=== PATIENT | male | born 1970 | race African-American/Black ===

== ENCOUNTER 2018-02-16 11:52 | Inpatient (IN) | payer OTHER ==
[2018-02-16 12:05] VITALS: BMI 27.4
--- NOTE | 2018-02-16 14:47 | HP ---
CIWA Score Nausea/Vomitin Muscle Tremors: 2 Anxiety: 2 Agitation: 2 Paroxysmal Sweats: 1-Minimal Palms Moist Orientation: 0-Oriented Tacttile Disturbances: 1-Very Mild Itch/Numbness Auditory Disturbances: 1-Very Mild Visual Disturbances: 0-None Headache: 2-Mild CIWA-Ar Total Score: 13 - Admission Criteria OASAS Guidelines: Admission for Medically Managed Detox: Requires at least one of the followin. CIWA greater than 12 2. Seizures within the past 24 hours 3. Delirium tremens within the past 24 hours 4. Hallucinations within the past 24 hours 5. Acute intervention needed for co occurring medical disorder 6. Acute intervention needed for co occurring psychiatric disorder 7. Severe withdrawal that cannot be handled at a lower level of care (continued vomiting, continued diarrhea, abnormal vital signs) requiring intravenous medication and/or fluids 8. Patient presents the following: CIWA greater than 12 Admission Criteria Met: Admission criteria met Admission ROS S - [facility] Chief Complaint: i need helpto stop drinking alcohol,xanax,cocaine,marijuana,heroin abused,mmtp 110 mgs/day,last medicated today Allergies/Adverse Reactions: Allergies Allergy/AdvReac Type Severity Reaction Status Date / Time No Known Allergies Allergy Verified 02/12/13 12:52 History of Present Illness: this 47 years old male with alcohol,cocaine,marijuana,xaxax ,heroin abused,mmtp 110 mgs/day,last medicated to day,last treatment 01/22 did not recall the facility gout right foot on prednisone by [facility] 40 mgs/day has 2 more days of medications nicotine dependence weight loss multiple admissions in the past longest period of sobriety 3 and a half year seizure last 3 days ago last seen in [facility],ecchymosis right ,abrasion of right face history of schizophrenia Exam Limitations: No Limitations - Ebola screening Have you traveled outside of the country in the last 21 days: No Have you had contact with anyone from an Ebola affected area: No Have you been sick,other than usual withdrawal symptoms: No - Review of Systems Constitutional: Loss of Appetite, Malaise, Night Sweats, Changes in sleep, Weakness, Unintentional Wgt. Loss EENT: reports: Nose Congestion (abrasion of right face and ecchymosis right infraorbital area) Respiratory: reports: No Symptoms reported Cardiac: reports: No Symptoms Reported GI: reports: Nausea, Poor Appetite : reports: No Symptoms Reported Musculoskeletal: reports: Back Pain, Muscle Pain, Other (gout right foot) Integumentary: reports: Dryness Neuro: reports: Headache, Tremors Endocrine: reports: No Symptoms Reported Hematology: reports: No Symptoms Reported Psychiatric: reports: No Sypmtoms Reported, Judgement Intact, Mood/Affect Appropiate, Orientated x3, other (schizophrenia) Patient History - Patient Medical History Hx Anemia: No Hx Asthma: No Hx Chronic Obstructive Pulmonary Disease (COPD): No Hx Cancer: No Hx Cardiac Disorders: No Hx Congestive Heart Failure: No Hx Hypertension: No Hx Hypercholesterolemia: No Hx Pacemaker: No HX Cerebrovascular Accident: No Hx Seizures: No Hx Dementia: No Hx Diabetes: No Hx Gastrointestinal Disorders: No Hx Liver Disease: No Hx Genitourinary Disorders: No Hx Sexually Transmitted Disorders: No Hx Renal Disease (ESRD): No Hx Thyroid Disease: No Hx Human Immunodeficiency Virus (HIV): No Hx Hepatitis C: No Hx Depression: Yes Hx Suicide Attempt: Yes (cut left forearm in 1992) Hx Bipolar Disorder: No Hx Schizophrenia: Yes Other Medical History: no suicidal,no homicidal - Patient Surgical History Past Surgical History: No Hx Neurologic Surgery: No Hx Cataract Extraction: No Hx Cardiac Surgery: No Hx Lung Surgery: No Hx Breast Surgery: No Hx Breast Biopsy: No Hx Abdominal Surgery: No Hx Appendectomy: No Hx Cholecystectomy: No Hx Genitourinary Surgery: No Hx Section: No Hx Orthopedic Surgery: No Anesthesia Reaction: No - PPD History Previous Implant?: Yes Documented Results: Negative w/o proof Implanted On Prior [facility] Admission?: Yes Date: 02/09/13 PPD to be Administered?: Yes - Smoking Cessation Smoking history: Current every day smoker Have you smoked in the past 12 months: Yes Aproximately how many cigarettes per day: 20 Cigars Per Day: 0 Hx Chewing Tobacco Use: No Initiated information on smoking cessation: Yes 'Breaking Loose' booklet given: 02/16/18 - Substance & Tx. History Hx Alcohol Use: Yes Hx Substance Use: Yes Substance Use Type: Alcohol, Cocaine, Heroin, Marijuana, Tranquilizers Hx Substance Use Treatment: Yes (01/22 did not recal facility) - Substances Abused Alcohol Route: Oral Frequency: Daily Amount used: 1pint of vodka/6 packs of 12 ozs of beer Age of first use: 14 Date of Last Use: 02/15/18 Alprazolam (Xanax) Route: Oral Frequency: Daily Amount used: 4 mgs Age of first use: 24 Date of Last Use: 02/14/18 Cocaine Route: Smoking Frequency: Daily Amount used: 100$ Age of first use: 17 Date of Last Use: 02/16/18 Marijuana/Hashish Route: Smoking Frequency: Daily Amount used: 20$ Age of first use: 12 Date of Last Use: 02/15/18 Heroin Route: Inhalation Frequency: Daily Amount used: 4 to 8 bags Age of first use: 12 Date of Last Use: 02/15/18 Family Disease History - Family Disease History Family History: Denies Admission Physical Exam [facility] - Vital Signs Vital Signs: Vital Signs - 24 hr 02/16/18 12:02 Temperature 96.2 F L Pulse Rate 76 Respiratory 18 Rate Blood Pressure 137/80 - Physical General Appearance: Yes: Moderate Distress, Tremorous, Irritable, Sweating, Anxious HEENTM: Yes: Normal ENT Inspection, DL, Pharynx Normal, Other (ecchymosis of right infraorbital area with abrasion no diplopia,no numbess of face and infraorbital area, post seizure 3 days ago seen at [facility]) Respiratory: Yes: Lungs Clear, Normal Breath Sounds, No Respiratory Distress Neck: Yes: Within Normal Limits, Supple, Trachea in good position Breast: Yes: Within Normal Limits Cardiology: Yes: Within Normal Limits, Regular Rhythm, Regular Rate, S1, S2 Abdominal: Yes: Within Normal Limits, Normal Bowel Sounds, Non Tender, Soft Genitourinary: Yes: Within Normal Limits Back: Yes: Muscle Spasm Musculoskeletal: Yes: Back pain, Muscle Pain Extremities: Yes: Normal Range of Motion, Tremors, Other (gout of right foot) Neurological: Yes: panel edge sealer II-XII NML intact, Fully Oriented, Alert, Motor Strength 5/5 Integumentary: Yes: Dry Lymphatic: Yes: Within Normal Limits - Diagnostic (1) Alcohol dependence with uncomplicated withdrawal Current Visit: Yes Status: Acute (2) Uncomplicated sedative, hypnotic or anxiolytic withdrawal Current Visit: Yes Status: Acute (3) Cannabis dependence Current Visit: Yes Status: Chronic (4) Cocaine dependence Current Visit: No Status: Chronic (5) Heroin abuse Current Visit: Yes Status: Acute (6) Methadone maintenance therapy patient Current Visit: Yes Status: Acute (7) Gout of right foot Current Visit: Yes Status: Chronic Qualifiers: Gout etiology: idiopathic Chronicity: unspecified Qualified Code(s): M10.071 - Idiopathic gout, right ankle and foot (8) Schizophrenia Current Visit: Yes Status: Chronic Qualifiers: Schizophrenia type: paranoid schizophrenia Qualified Code(s): F20.0 - Paranoid schizophrenia (9) History of attempted suicide Current Visit: Yes Status: Acute Cleared for Admission [facility] - Detox or Rehab [facility] Level of Care: Medically Managed Detox Regimen/Protocol: Valium [facility] Breath Alcohol Content Breath Alcohol Content: 0 Urine Drug Screen - Results Drug Screen Negative: No Urine Drug Screen Results: MYRIAM-Cocaine, OPI-Opiates, BZO-Benzodiazepines, MTD- Methadone, FEN-Fentanyl
[2018-02-16] MEDS ORDERED: MAG HYDROX/AL HYDROX/SIMETH 30 ML UNIT-DOSE CUP PO PRN (15:03)
[2018-02-16] MEDS ORDERED: LOPERAMIDE HCL 2 MG CAPSULE PO PRN (15:03)
[2018-02-16] MEDS ORDERED: P-EPHED 60MG/TRIPROLIDI 2.5MG TABLET PO PRN (15:03)
[2018-02-16] MEDS ORDERED: guaiFENesin/D-METHORPHAN HB 10 ML UNIT-DOSE CUPS PO PRN (15:03)
[2018-02-16] MEDS ORDERED: MENTHOL/PHENOL 1 EACH UD MM PRN (15:03)
[2018-02-16] MEDS ORDERED: diazePAM 5 MG TABLET PO PRN (15:03)
[2018-02-16] MEDS ORDERED: MAGNESIUM CITRATE 300 ML BOTTLE PO PRN (15:03)
[2018-02-16] MEDS ORDERED: MAGNESIUM HYDROX 2400MG/30ML ORAL SUSPENSION 30 ML CUP PO PRN (15:03)
[2018-02-16] MEDS ORDERED: diazePAM 5 MG TABLET PO ONE (15:45)
[2018-02-16] MEDS: NICOTINE 21 MG/24 HOURS TOPICAL PATCH TD SCH (17:45)
[2018-02-16] MEDS ORDERED: MELATONIN 5 MG TABLETS PO PRN (22:00)
[2018-02-16] MEDS: diazePAM 5 MG TABLET PO SCH (22:29)
[2018-02-16] MEDS: THIAMINE HCL 100 MG TABLET (FP) PO SCH (22:29)
[2018-02-17] MEDS: diazePAM 5 MG TABLET PO SCH ×3 (07:20→21:59)
[2018-02-17] MEDS ORDERED: METHADONE HCL 10 MG TABLET PO SCH (09:15)
[2018-02-17] MEDS ORDERED: METHADONE 80 MG, METHADONE (DETOX) 30 MG PO SCH (09:20)
[2018-02-17] MEDS ORDERED: METHADONE HCL 10 MG TABLET ONE (10:27)
[2018-02-17] MEDS ORDERED: METHADONE HCL 40 MG DISPERSABLE TABLET ONE (10:27)
[2018-02-17] MEDS: METHADONE 80 MG, METHADONE 30 MG PO SCH (10:28)
[2018-02-17] MEDS: NICOTINE 21 MG/24 HOURS TOPICAL PATCH TD SCH (10:29)
[2018-02-17] MEDS: predniSONE 20 MG TABLET (UD) PO SCH (10:29)
[2018-02-17 10:30] LABS: HEMATOCRIT 36.6 % (35.4-49); HEMOGLOBIN 11.6 GM/dL (11.7-16.9); MCH 29.9 pg (25.7-33.7); MCHC 31.7 g/dl (32.0-35.9); MEAN CELL VOLUME 94.2 fl (80-96); MEAN PLT VOLUME 8.9 fl (7.5-11.1); PLATELET COUNT 249 K/MM3 (134-434); RBC 3.89 M/mm3 (4.00-5.60); RDW 14.7 % (11.9-15.9); WHITE BLOOD COUNT 8.8 K/mm3 (4.0-10.0)
[2018-02-17] MEDS: PRENATAL VITAMINS W/ FOLIC ACID TABLET (FP) PO SCH (10:30)
[2018-02-17 11:25] LABS: ALBUMIN 3.8 g/dl (3.4-5.0); ALK PHOS 114 U/L (45-117); ANION GAP 8 MMOL/L (8-16); BILIRUBIN,TOTAL 0.2 mg/dL (0.2-1); BLOOD UREA NITROGEN 18 mg/dL (7-18); CHLORIDE 110 mmol/L (98-107); CO2 25 mmol/L (21-32); GLUCOSE,RANDOM 104 mg/dL (74-106); POTASSIUM 4.5 mmol/L (3.5-5.1); SGOT/AST 18 U/L (15-37); SGPT/ALT 25 U/L (13-61); SODIUM 142 mmol/L (136-145)
[2018-02-17] MEDS: ALLOPURINOL 100 MG TABLET (FP) PO SCH (11:34)
[2018-02-17] MEDS ORDERED: PNEUMOC 13-VAL CONJ-DIP CRM/PF 0.5 ML DISP.SYRIN IM ONE (12:00)
[2018-02-17] MEDS ORDERED: FLU VACCINE QUAD 60 MCG/0.5 ML (MDV 18-19) IM ONE (12:00)
[2018-02-17] MEDS ORDERED: PNEUMOCOCCAL 23 VACCINE 0.5 ML VIAL IM ONE (12:00)
--- NOTE | 2018-02-17 13:42 | PN ---
[facility] CIWA - CIWA Score Nausea/Vomitin-No Nausea/No Vomiting Muscle Tremors: 2 Anxiety: 3 Agitation: 3 Paroxysmal Sweats: No Perspiration Orientation: 0-Oriented Tacttile Disturbances: 3-Moderate Itch/Numb/Burn Auditory Disturbances: 0-None Visual Disturbances: 0-None Headache: 0-None Present CIWA-Ar Total Score: 11 S Progress Note (SOAP) Subjective: PATIENT C/O SHAKES, NUMBNESS/ITCHING TO FEET, RESTLESSNESS AND RIGHT ANKLE SWELLING/PAIN. PATIENT REPORTS H/O GOUT. Objective: 02/17/18 13:37 Vital Signs Temperature 97.6 F 02/17/18 10:59 Pulse Rate 60 02/17/18 10:59 Respiratory Rate 18 02/17/18 10:59 Blood Pressure 100/54 L 02/17/18 10:59 O2 Sat by Pulse Oximetry (%) Laboratory Tests 02/17/18 02/17/18 02/17/18 05:45 05:45 05:45 WBC 8.8 RBC 3.89 L Hgb 11.6 L Hct 36.6 MCV 94.2 MCH 29.9 D MCHC 31.7 L RDW 14.7 D Plt Count 249 D MPV 8.9 Sodium 142 Potassium 4.5 Chloride 110 H Carbon Dioxide 25 Anion Gap 8 BUN 18 Creatinine 1.0 Creat Clearance w eGFR > 60 Random Glucose 104 Calcium 9.0 Total Bilirubin 0.2 AST 18 ALT 25 Alkaline Phosphatase 114 Total Protein 7.0 Albumin 3.8 RPR Titer Nonreactive PE: SKIN WARM AND DRY ALERT AND ORIENTED X 3 EXT FULL ROM, AMB AD SHANNAN WITH LIMP, RIGHT OUTER ANKLE SWELLING NEURO: CRANIAL NERVES 1-X11 GROSSLY INTACT, +PERRLA +RESTLESSNESS, PACING ON UNIT Assessment: 02/17/18 13:42 WITHDRAWAL SX H/O GOUT Plan: CONTINUE DETOX ENCOURAGE ORAL FLUIDS CHECK URIC ACID ALLOPURINOL 100MG DAILY CANE ORDERED FOR AMBULATION SUPPORT
--- NOTE | 2018-02-17 16:56 | CONSULT ---
[facility] Psychiatric Consult - Data Date of interview: 02/17/18 Admission source: [facility] Identifying data: Readmission to [facility] for this 47 y/o AA male seeking detoxification treatment on for heroin, cocaine, cannabis and alcohol dependence. Patient is single, no children, homeless, unemployed and supported on Public Assistance. Substance Abuse History: Confirmed by the patient in this interview. Details in current [facility] report : Smoking history: Current every day smoker. Have you smoked in the past 12 months: Yes. Aproximately how many cigarettes per day: 20. Cigars Per Day: 0. Hx Chewing Tobacco Use: No. Initiated information on smoking cessation: Yes. 'Breaking Loose' booklet given: 02/16/18. - Substance & Tx. History. Hx Alcohol Use: Yes. Hx Substance Use: Yes. Substance Use Type : Alcohol, Cocaine, Heroin, Marijuana, Tranquilizers. Hx Substance Use Treatment: Yes (01/22 did not recal facility). - Substances Abused. Alcohol. Route: Oral. Frequency: Daily. Amount used: 1pint of vodka/6 packs of 12 ozs of beer. Age of first use: 14. Date of Last Use: 02/15/18. Alprazolam (Xanax). Route: Oral. Frequency: Daily. Amount used: 4 mgs. Age of first use: 24. Date of Last Use: 02/14/18. Cocaine. Route: Smoking. Frequency: Daily. Amount used: 100$. Age of first use: 17. Date of Last Use: 02/16/18. Marijuana/Hashish. Route: Smoking. Frequency: Daily. Amount used: 20$. Age of first use: 12. Date of Last Use: 02/15/18. Heroin. Route: Inhalation. Frequency: Daily. Amount used: 4 to 8 bags. Age of first use: 12. Date of Last Use: 02/15/18 Medical History: Seizure disorder (on keppra) and gout. Psychiatric History: Early onset of psychiatric illness (age 8). History of multiple psychiatric hospitalizations. Patient is known to [facility], [facility] and [facility]. Diagnosed with Schizoaffective Disorder. Mr Saldana sees a private psychiatrist in [facility]. Medicated with abilify. Patient used to be under the care of Dr Jagdish Lu at [facility] (used to be on a regimen of depakote 500 mg/ bid + trazodone 50 mg/hs + lexapro 20 mg/daily + neurontin 300 mg bid + cogentin 1 mg/hs. History of multiple suicide attempts via self-mutilation ( scars visible on left forearm). On methadone maintenance (110 mg/day). Physical/Sexual Abuse/Trauma History: Patient denies. Additional Comment: Urine Drug Screen Results: MYRIAM-Cocaine, OPI-Opiates, BZO- Benzodiazepines, MTD-Methadone, FEN-Fentanyl. Noted. Mental Status Exam - Mental Status Exam Alert and Oriented to: Time, Place, Person Cognitive Function: Good Patient Appearance: Well Groomed Mood: Nervous, Withdrawn, Apprehensive Affect: Mood Congruent, Constricted Patient Behavior: Fatigued, Cooperative Speech Pattern: Clear, Appropriate Voice Loudness: Normal Thought Process: Goal Oriented Thought Disorder: Not Present Hallucinations: Denies Suicidal Ideation: Denies Homicidal Ideation: Denies Insight/Judgement: Poor Sleep: Poorly, Difficulty falling asleep Appetite: Good Muscle strength/Tone: Normal Gait/Station: Other (walks with a cane) Psychiatric Findings - Problem List ([place] 1, 2,3) (1) Alcohol dependence with uncomplicated withdrawal Current Visit: Yes Status: Acute (2) Uncomplicated sedative, hypnotic or anxiolytic withdrawal Current Visit: Yes Status: Acute (3) Opioid dependence on agonist therapy Current Visit: Yes Status: Chronic (4) Cannabis dependence Current Visit: Yes Status: Chronic (5) Cocaine dependence Current Visit: No Status: Chronic (6) Nicotine dependence Current Visit: Yes Status: Chronic (7) Schizoaffective disorder Current Visit: Yes Status: Chronic (8) Insomnia Current Visit: Yes Status: Chronic - Initial Treatment Plan Initial Treatment Plan: Psychoeducation. Sleep hygiene. Detoxification in progress. Medications will be resumed as follows : depakote 500 mg po bid + abilify 5 mg po daily + trazodone 50 mg po hs. Pharmacy claimms are reviewed : noted scripts for these drugs dated 01/13/18 + 01/30/18 + 02/05/18. Attempt made to contact [facility] pharmacist at [phone]. Busy line. Will contact case hardener Sharlene Yanes from [employer] at [phone] to collect collateral information. Side effects/benefits of each drug are discussed with the patient. Mr Saldana consents (verbally) to this plan of care. Observation. Valproic acid level is pending.
[2018-02-17] MEDS: ACETAMINOPHEN 325 MG TABLET (FP) PO PRN (18:59)
[2018-02-17] MEDS: traZODone HCL 50 MG TABLET (FP) PO SCH (21:59)
[2018-02-17] MEDS: DIVALPROEX SODIUM 500 MG TABLET E.C. PO SCH (21:59)
[2018-02-17] MEDS: THIAMINE HCL 100 MG TABLET (FP) PO SCH (21:59)
[2018-02-18] MEDS ORDERED: METHADONE HCL 10 MG TABLET ONE (04:44)
[2018-02-18] MEDS ORDERED: METHADONE HCL 40 MG DISPERSABLE TABLET ONE (04:45)
[2018-02-18] MEDS: METHADONE 80 MG, METHADONE 30 MG PO SCH (05:26)
[2018-02-18] MEDS: ARIPiprazole 5 MG TABLET (FP) PO SCH (09:48)
[2018-02-18] MEDS: DIVALPROEX SODIUM 500 MG TABLET E.C. PO SCH ×2 (09:48→22:35)
[2018-02-18] MEDS: ALLOPURINOL 100 MG TABLET (FP) PO SCH (09:48)
[2018-02-18] MEDS: BENZTROPINE MESYLATE 1 MG TABLET (FP) PO SCH (09:48)
[2018-02-18] MEDS: predniSONE 20 MG TABLET (UD) PO SCH (09:48)
[2018-02-18] MEDS: diazePAM 5 MG TABLET PO SCH ×2 (09:49→22:35)
[2018-02-18] MEDS: NICOTINE 21 MG/24 HOURS TOPICAL PATCH TD SCH (10:19)
[2018-02-18] MEDS: PRENATAL VITAMINS W/ FOLIC ACID TABLET (FP) PO SCH (10:19)
--- NOTE | 2018-02-18 11:32 | PN ---
S CIWA - CIWA Score Nausea/Vomitin Muscle Tremors: 2 Anxiety: 2 Agitation: 2 Paroxysmal Sweats: 2 Orientation: 0-Oriented Tacttile Disturbances: 1-Very Mild Itch/Numbness Auditory Disturbances: 0-None Visual Disturbances: 0-None Headache: 0-None Present CIWA-Ar Total Score: 11 S Progress Note (SOAP) Subjective: Sweats, interrupted sleep, right foot pain Objective: 02/18/18 11:30 Vital Signs Temperature 98.7 F 02/18/18 09:57 Pulse Rate 76 02/18/18 09:57 Respiratory Rate 18 02/18/18 09:57 Blood Pressure 127/77 02/18/18 09:57 O2 Sat by Pulse Oximetry (%) Laboratory Last Values WBC 8.8 K/mm3 (4.0-10.0) 02/17/18 05:45 RBC 3.89 M/mm3 (4.00-5.60) L 02/17/18 05:45 Hgb 11.6 GM/dL (11.7-16.9) L 02/17/18 05:45 Hct 36.6 % (35.4-49) 02/17/18 05:45 MCV 94.2 fl (80-96) 02/17/18 05:45 MCH 29.9 pg (25.7-33.7) D 02/17/18 05:45 MCHC 31.7 g/dl (32.0-35.9) L 02/17/18 05:45 RDW 14.7 % (11.9-15.9) D 02/17/18 05:45 Plt Count 249 K/MM3 (134-434) D 02/17/18 05:45 MPV 8.9 fl (7.5-11.1) 02/17/18 05:45 Sodium 142 mmol/L (136-145) 02/17/18 05:45 Potassium 4.5 mmol/L (3.5-5.1) 02/17/18 05:45 Chloride 110 mmol/L (98-107) H 02/17/18 05:45 Carbon Dioxide 25 mmol/L (21-32) 02/17/18 05:45 Anion Gap 8 MMOL/L (8-16) 02/17/18 05:45 BUN 18 mg/dL (7-18) 02/17/18 05:45 Creatinine 1.0 mg/dL (0.55-1.3) 02/17/18 05:45 Creat Clearance w eGFR > 60 (>60) 02/17/18 05:45 Random Glucose 104 mg/dL (74-106) 02/17/18 05:45 Uric Acid 4.2 mg/dL (2.6-7.2) 02/18/18 07:40 Calcium 9.0 mg/dL (8.5-10.1) 02/17/18 05:45 Total Bilirubin 0.2 mg/dL (0.2-1) 02/17/18 05:45 AST 18 U/L (15-37) 02/17/18 05:45 ALT 25 U/L (13-61) 02/17/18 05:45 Alkaline Phosphatase 114 U/L (45-117) 02/17/18 05:45 Total Protein 7.0 g/dl (6.4-8.2) 02/17/18 05:45 Albumin 3.8 g/dl (3.4-5.0) 02/17/18 05:45 Valproic Acid 35.3 ug/ml (50-100) L 02/18/18 09:30 RPR Titer Nonreactive (NONREACTIVE) 02/17/18 05:45 Labs noted Assessment: 02/18/18 11:31 Withdrawal sx Gout Plan: Continue detox Continue allopurinol and prednisone
[2018-02-18] MEDS: IBUPROFEN 400 MG TABLET (FP) PO PRN (13:44)
[2018-02-18] MEDS: ACETAMINOPHEN 325 MG TABLET (FP) PO PRN (18:59)
[2018-02-18] MEDS: THIAMINE HCL 100 MG TABLET (FP) PO SCH (22:35)
[2018-02-18] MEDS: traZODone HCL 50 MG TABLET (FP) PO SCH (22:35)
[2018-02-19] MEDS ORDERED: METHADONE HCL 10 MG TABLET ONE (04:17)
[2018-02-19] MEDS ORDERED: METHADONE HCL 40 MG DISPERSABLE TABLET ONE (04:18)
[2018-02-19] MEDS: METHADONE 80 MG, METHADONE 30 MG PO SCH (06:38)
[2018-02-19] MEDS: IBUPROFEN 400 MG TABLET (FP) PO PRN (10:45)
[2018-02-19] MEDS: predniSONE 20 MG TABLET (UD) PO SCH (10:46)
[2018-02-19] MEDS: BENZTROPINE MESYLATE 1 MG TABLET (FP) PO SCH (10:46)
[2018-02-19] MEDS: NICOTINE 21 MG/24 HOURS TOPICAL PATCH TD SCH (10:46)
[2018-02-19] MEDS: DIVALPROEX SODIUM 500 MG TABLET E.C. PO SCH ×2 (10:46→22:12)
[2018-02-19] MEDS: diazePAM 5 MG TABLET PO SCH ×2 (10:46→22:12)
[2018-02-19] MEDS: PRENATAL VITAMINS W/ FOLIC ACID TABLET (FP) PO SCH (10:46)
[2018-02-19] MEDS: ALLOPURINOL 100 MG TABLET (FP) PO SCH (10:47)
[2018-02-19] MEDS: ARIPiprazole 5 MG TABLET (FP) PO SCH (12:39)
--- NOTE | 2018-02-19 16:52 | PN ---
[facility] Progress Note (SOAP) Subjective: Anxious, restless, sweating, interrupted sleep Objective: 02/19/18 16:50 Last Vital Signs Temp Pulse Resp BP Pulse Ox 98.7 F 90 18 124/74 02/19/18 13:27 02/19/18 13:27 02/19/18 13:27 02/19/18 13:27 Laboratory Tests 02/17/18 02/17/18 02/17/18 05:45 05:45 05:45 WBC 8.8 RBC 3.89 L Hgb 11.6 L Hct 36.6 MCV 94.2 MCH 29.9 D MCHC 31.7 L RDW 14.7 D Plt Count 249 D MPV 8.9 Sodium 142 Potassium 4.5 Chloride 110 H Carbon Dioxide 25 Anion Gap 8 BUN 18 Creatinine 1.0 Creat Clearance w eGFR > 60 Random Glucose 104 Uric Acid Calcium 9.0 Total Bilirubin 0.2 AST 18 ALT 25 Alkaline Phosphatase 114 Total Protein 7.0 Albumin 3.8 Valproic Acid RPR Titer Nonreactive 02/18/18 02/18/18 07:40 09:30 WBC RBC Hgb Hct MCV MCH MCHC RDW Plt Count MPV Sodium Potassium Chloride Carbon Dioxide Anion Gap BUN Creatinine Creat Clearance w eGFR Random Glucose Uric Acid 4.2 Calcium Total Bilirubin AST ALT Alkaline Phosphatase Total Protein Albumin Valproic Acid 35.3 L RPR Titer Labs reviewed Assessment: 02/19/18 16:51 Withdrawal symptoms Plan: Continue detox Encouraged PO water intake
[2018-02-19] MEDS: traZODone HCL 50 MG TABLET (FP) PO SCH (22:12)
[2018-02-19] MEDS: THIAMINE HCL 100 MG TABLET (FP) PO SCH (22:12)
[2018-02-20] MEDS: ACETAMINOPHEN 325 MG TABLET (FP) PO PRN (01:30)
[2018-02-20] MEDS ORDERED: METHADONE HCL 10 MG TABLET ONE (04:51)
[2018-02-20] MEDS ORDERED: METHADONE HCL 40 MG DISPERSABLE TABLET ONE (04:51)
[2018-02-20] MEDS: METHADONE 80 MG, METHADONE 30 MG PO SCH (05:20)
[2018-02-20] MEDS: IBUPROFEN 400 MG TABLET (FP) PO PRN (07:52)
[2018-02-20 09:51] VITALS: PULSE 79
[2018-02-20] MEDS ORDERED: diazePAM 5 MG TABLET PO SCH (10:00)
[2018-02-20] MEDS: NICOTINE 21 MG/24 HOURS TOPICAL PATCH TD SCH (10:21)
[2018-02-20] MEDS: PRENATAL VITAMINS W/ FOLIC ACID TABLET (FP) PO SCH (10:22)
[2018-02-20] MEDS: ALLOPURINOL 100 MG TABLET (FP) PO SCH (10:29)
[2018-02-20] MEDS: DIVALPROEX SODIUM 500 MG TABLET E.C. PO SCH (10:29)
[2018-02-20] MEDS: predniSONE 20 MG TABLET (UD) PO SCH (10:29)
[2018-02-20] MEDS: BENZTROPINE MESYLATE 1 MG TABLET (FP) PO SCH (10:30)
[2018-02-20] MEDS: ARIPiprazole 5 MG TABLET (FP) PO SCH (10:33)
--- NOTE | 2018-02-20 11:25 | DS ---
[facility] Detox Discharge Summary Admission Date: 02/16/18 Discharge Date: 02/20/18 - History Present History: Alcohol Dependence Additional Comments: 47 years old male admitted on 02/16/18 for alcohol withdrawal stability completed detox regimen tolerated well alert no acute distress aftercare [facility] Pertinent Past History: reported long history of gout right ankle x months - Physical Exam Results Vital Signs: Vital Signs Temperature 98.7 F 02/20/18 09:51 Pulse Rate 79 02/20/18 09:51 Respiratory Rate 18 02/20/18 09:51 Blood Pressure 135/77 02/20/18 09:51 O2 Sat by Pulse Oximetry (%) Pertinent Admission Physical Exam Findings: alcohol withdrawal sx Vital Signs Temperature 98.7 F 02/20/18 09:51 Pulse Rate 79 02/20/18 09:51 Respiratory Rate 18 02/20/18 09:51 Blood Pressure 135/77 02/20/18 09:51 O2 Sat by Pulse Oximetry (%) Laboratory Last Values WBC 8.8 K/mm3 (4.0-10.0) 02/17/18 05:45 RBC 3.89 M/mm3 (4.00-5.60) L 02/17/18 05:45 Hgb 11.6 GM/dL (11.7-16.9) L 02/17/18 05:45 Hct 36.6 % (35.4-49) 02/17/18 05:45 MCV 94.2 fl (80-96) 02/17/18 05:45 MCH 29.9 pg (25.7-33.7) D 02/17/18 05:45 MCHC 31.7 g/dl (32.0-35.9) L 02/17/18 05:45 RDW 14.7 % (11.9-15.9) D 02/17/18 05:45 Plt Count 249 K/MM3 (134-434) D 02/17/18 05:45 MPV 8.9 fl (7.5-11.1) 02/17/18 05:45 Sodium 142 mmol/L (136-145) 02/17/18 05:45 Potassium 4.5 mmol/L (3.5-5.1) 02/17/18 05:45 Chloride 110 mmol/L (98-107) H 02/17/18 05:45 Carbon Dioxide 25 mmol/L (21-32) 02/17/18 05:45 Anion Gap 8 MMOL/L (8-16) 02/17/18 05:45 BUN 18 mg/dL (7-18) 02/17/18 05:45 Creatinine 1.0 mg/dL (0.55-1.3) 02/17/18 05:45 Creat Clearance w eGFR > 60 (>60) 02/17/18 05:45 Random Glucose 104 mg/dL (74-106) 02/17/18 05:45 Uric Acid 4.2 mg/dL (2.6-7.2) 02/18/18 07:40 Calcium 9.0 mg/dL (8.5-10.1) 02/17/18 05:45 Total Bilirubin 0.2 mg/dL (0.2-1) 02/17/18 05:45 AST 18 U/L (15-37) 02/17/18 05:45 ALT 25 U/L (13-61) 02/17/18 05:45 Alkaline Phosphatase 114 U/L (45-117) 02/17/18 05:45 Total Protein 7.0 g/dl (6.4-8.2) 02/17/18 05:45 Albumin 3.8 g/dl (3.4-5.0) 02/17/18 05:45 Valproic Acid 35.3 ug/ml (50-100) L 02/18/18 09:30 RPR Titer Nonreactive (NONREACTIVE) 02/17/18 05:45 lab noted - Treatment Hospital Course: Detox Protocol Followed, Detoxed Safely, Responded well, Discharged Condition Good, Rehab Referral Accepted Patient has Accepted a Re[facility] Referral to: [facility] - Medication Discharge Medications: Ambulatory Orders Divalproex [Depakote -] 500 mg PO BID 02/07/13 Gabapentin [Neurontin] 200 mg PO BID 02/07/13 Aripiprazole [Abilify -] 5 mg PO DAILY 02/12/13 Benztropine Mesylate [Cogentin -] 1 mg PO DAILY 02/12/13 traZODone HCL [Desyrel -] 50 mg PO HS 02/12/13 Carbamazepine Xr [Tegretol Xr -] 200 mg PO BID 02/16/18 predniSONE [Deltasone -] 40 mg PO DAILY 02/16/18 Levetiracetam [Keppra Xr] 750 mg PO BID 02/20/18 Methadone [Dolophine -] 110 mg PO DAILY 02/20/18 - Diagnosis (1) Alcohol dependence with uncomplicated withdrawal Current Visit: Yes Status: Acute (2) Gout of right foot Current Visit: Yes Status: Chronic Qualifiers: Gout etiology: idiopathic Chronicity: unspecified Qualified Code(s): M10.071 - Idiopathic gout, right ankle and foot (3) Nicotine dependence Current Visit: Yes Status: Acute Qualifiers: Nicotine product type: cigarettes Substance use status: in withdrawal Qualified Code(s): F17.213 - Nicotine dependence, cigarettes, with withdrawal (4) Schizophrenia Current Visit: Yes Status: Suspected Qualifiers: Schizophrenia type: paranoid schizophrenia Qualified Code(s): F20.0 - Paranoid schizophrenia (5) Seizure Current Visit: Yes Status: Chronic - AMA Did Patient Leave Against Medical Advice: No
[2018-02-20 13:05] VITALS: BP 138/80; TEMP 97.8
== END 2018-02-20 14:50 | disposition other institution (70) | DRG 773 ==
LOC: YASAS 11:52 → Y3N 15:42
PROC: HZ2ZZZZ Detoxification Services for Substance Abuse Treatment (ICD-10-PCS; principal; 2018-02-16)
DX: F10.230 Alcohol dependence with withdrawal, uncomplicated (principal); F11.20 Opioid dependence, uncomplicated; F13.230 Sedative, hypnotic or anxiolytic dependence with withdrawal, uncomplicated; F14.20 Cocaine dependence, uncomplicated; F12.20 Cannabis dependence, uncomplicated; F17.213 Nicotine dependence, cigarettes, with withdrawal; F25.9 Schizoaffective disorder, unspecified; M10.071 Idiopathic gout, right ankle and foot; G40.909 Epilepsy, unspecified, not intractable, without status epilepticus; G47.00 Insomnia, unspecified; Z91.5 Personal history of self-harm
CPT/HCPCS: 36415; 80053; 80164; 84550; 85027; 86593; 90688; 90732; G0008; G0009

== ENCOUNTER 2018-02-20 14:58 | Inpatient (IN) | payer OTHER ==
--- NOTE | 2018-02-20 11:34 | HP ---
[facility] Rehab Assess/Revision - Admission History Admitted to Rehab from: [facility] Date of Admission to Rehab: 02/20/18 - Findings Detox History & Physical reviewed: Yes Concur with findings: Yes Comments/Additional Findings: transferred from detox to rehab admission as per protocol Inpatient Rehab Admission - Initial Determination Are CD services needed?: Yes Free of communicable disease: Yes Not in need of hospitalization: Yes - Rehab Admission Criteria Previous failed treatment: Yes Poor recovery environment: Yes Comorbidities: Yes Lacks judgement: No Patient is meeting Inpatient Rehab admission criteria:: Yes
[~2018-02-20 14:58] MED LIST: IBUPROFEN 400 MG TABLET (FP) PO PRN; LOPERAMIDE HCL 2 MG CAPSULE PO PRN; MAGNESIUM CITRATE 300 ML BOTTLE PO PRN; MAGNESIUM HYDROX 2400MG/30ML ORAL SUSPENSION 30 ML CUP PO PRN; MENTHOL/PHENOL 1 EACH UD MM PRN; NICOTINE POLACRILEX 2 MG GUM BUC PRN; P-EPHED 60MG/TRIPROLIDI 2.5MG TABLET PO PRN; guaiFENesin/D-METHORPHAN HB 10 ML UNIT-DOSE CUPS PO PRN
[2018-02-20] MEDS: NAPROXEN 500 MG TABLET (FP) PO SCH (22:00)
[2018-02-20] MEDS: DIVALPROEX SODIUM 500 MG TABLET E.C. PO SCH (22:00)
[2018-02-20] MEDS: THIAMINE HCL 100 MG TABLET (FP) PO SCH (22:00)
[2018-02-20] MEDS: GABAPENTIN 100 MG CAPSULE (FP) PO SCH (22:00)
[2018-02-20] MEDS: predniSONE 20 MG TABLET (UD) PO SCH (22:00)
[2018-02-20] MEDS: levETIRAcetam XR 750 MG TAB PO SCH (22:01)
[2018-02-20] MEDS: traZODone HCL 50 MG TABLET (FP) PO SCH (22:02)
[2018-02-21] MEDS: ACETAMINOPHEN 325 MG TABLET (FP) PO PRN ×3 (01:53→16:42)
[2018-02-21] MEDS ORDERED: METHADONE HCL 10 MG TABLET ONE (06:43)
[2018-02-21] MEDS ORDERED: METHADONE HCL 40 MG DISPERSABLE TABLET ONE (06:43)
[2018-02-21] MEDS: METHADONE 80 MG, METHADONE 30 MG PO SCH (06:45)
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
[2018-02-21] MEDS: ARIPiprazole 5 MG TABLET (FP) PO SCH (09:54)
[2018-02-21] MEDS: DIVALPROEX SODIUM 500 MG TABLET E.C. PO SCH ×2 (09:55→21:45)
[2018-02-21] MEDS: levETIRAcetam XR 750 MG TAB PO SCH ×2 (09:55→21:45)
[2018-02-21] MEDS: predniSONE 20 MG TABLET (UD) PO SCH ×2 (09:55→21:45)
[2018-02-21] MEDS: NAPROXEN 500 MG TABLET (FP) PO SCH ×2 (09:55→21:47)
[2018-02-21] MEDS: PRENATAL VITAMINS W/ FOLIC ACID TABLET (FP) PO SCH (09:56)
[2018-02-21] MEDS: GABAPENTIN 100 MG CAPSULE (FP) PO SCH ×2 (09:56→21:45)
[2018-02-21] MEDS ORDERED: METHADONE HCL 40 MG DISPERSABLE TABLET PO SCH (10:00)
[2018-02-21 10:36] LABS: CARBAMAZEPINE (TEGRETOL) < 0.5 ug/ml (1.0-12.0); VALPROIC ACID DEPAKOTE DEPAKAN 52.4 ug/ml (50-100)
[2018-02-21] MEDS: THIAMINE HCL 100 MG TABLET (FP) PO SCH (21:44)
[2018-02-21] MEDS: traZODone HCL 50 MG TABLET (FP) PO SCH (21:45)
[2018-02-22] MEDS: ACETAMINOPHEN 325 MG TABLET (FP) PO PRN (03:10)
[2018-02-22] MEDS ORDERED: METHADONE HCL 10 MG TABLET ONE (05:15)
[2018-02-22] MEDS ORDERED: METHADONE HCL 40 MG DISPERSABLE TABLET ONE (05:15)
[2018-02-22] MEDS: METHADONE 80 MG, METHADONE 30 MG PO SCH (06:11)
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
[2018-02-22] MEDS: GABAPENTIN 100 MG CAPSULE (FP) PO SCH ×2 (10:06→21:27)
[2018-02-22] MEDS: DIVALPROEX SODIUM 500 MG TABLET E.C. PO SCH ×2 (10:06→21:27)
[2018-02-22] MEDS: PRENATAL VITAMINS W/ FOLIC ACID TABLET (FP) PO SCH (10:06)
[2018-02-22] MEDS: predniSONE 20 MG TABLET (UD) PO SCH ×2 (10:06→21:28)
[2018-02-22] MEDS: NAPROXEN 500 MG TABLET (FP) PO SCH ×2 (10:06→21:27)
[2018-02-22] MEDS: levETIRAcetam XR 750 MG TAB PO SCH ×2 (10:06→22:49)
[2018-02-22] MEDS: ARIPiprazole 5 MG TABLET (FP) PO SCH (10:06)
[2018-02-22] MEDS ORDERED: hydrOXYzine PAMOATE 50 MG CAPSULE (FP) PO ONE (10:15)
[2018-02-22] MEDS: THIAMINE HCL 100 MG TABLET (FP) PO SCH (21:27)
[2018-02-22] MEDS: traZODone HCL 50 MG TABLET (FP) PO SCH (21:27)
[2018-02-23] MEDS ORDERED: METHADONE HCL 10 MG TABLET ONE (02:51)
[2018-02-23] MEDS ORDERED: METHADONE HCL 40 MG DISPERSABLE TABLET ONE (02:51)
[2018-02-23] MEDS: METHADONE 80 MG, METHADONE 30 MG PO SCH (06:23)
[2018-02-23] MEDS: DIVALPROEX SODIUM 500 MG TABLET E.C. PO SCH ×2 (09:10→21:37)
[2018-02-23] MEDS: ARIPiprazole 5 MG TABLET (FP) PO SCH (09:10)
[2018-02-23] MEDS: predniSONE 20 MG TABLET (UD) PO SCH ×2 (09:10→21:36)
[2018-02-23] MEDS: GABAPENTIN 100 MG CAPSULE (FP) PO SCH ×2 (09:10→21:37)
[2018-02-23] MEDS: PRENATAL VITAMINS W/ FOLIC ACID TABLET (FP) PO SCH (09:10)
[2018-02-23] MEDS: NAPROXEN 500 MG TABLET (FP) PO SCH ×2 (09:11→21:36)
[2018-02-23] MEDS: DOCUSATE SODIUM 100 MG CAPSULE (FP) PO SCH ×2 (13:38→21:36)
[2018-02-23] MEDS: levETIRAcetam XR 750 MG TAB PO SCH ×2 (13:39→21:37)
[2018-02-23] MEDS: PSYLLIUM 5.85 GM PACKET PO SCH ×2 (13:39→21:37)
[2018-02-23] MEDS ORDERED: PT OWN MED DRAWER 7, Y5N ONE (19:45)
[2018-02-23] MEDS: THIAMINE HCL 100 MG TABLET (FP) PO SCH (21:36)
[2018-02-23] MEDS: traZODone HCL 50 MG TABLET (FP) PO SCH (21:37)
[2018-02-24] MEDS ORDERED: METHADONE HCL 40 MG DISPERSABLE TABLET ONE (03:46)
[2018-02-24] MEDS ORDERED: METHADONE HCL 10 MG TABLET ONE (03:46)
[2018-02-24] MEDS: METHADONE 80 MG, METHADONE 30 MG PO SCH (06:26)
[2018-02-24] MEDS ORDERED: SODIUM PHOSPHATE/NA BIPHOS 133 ML ENEMA PR ONE (09:19)
--- NOTE | 2018-02-24 09:25 | PN ---
[facility] Progress Note Note: PT C/O HARD SMALL STOOLS AND CONSTIPATION X 3-4 DAYS. PT ON METAMUCIL BUT NOT EFFECTIVE. Vital Signs 02/24/18 02/24/18 03:28 06:35 Temperature 98.0 F Pulse Rate 92 H Respiratory 16 18 Rate Blood Pressure 132/78 IMPRESSION:CONSTIPATION PLAN:FLEET ENEMA X 1
[2018-02-24] MEDS: DOCUSATE SODIUM 100 MG CAPSULE (FP) PO SCH ×2 (09:39→21:24)
[2018-02-24] MEDS: GABAPENTIN 100 MG CAPSULE (FP) PO SCH ×2 (09:39→21:24)
[2018-02-24] MEDS: predniSONE 20 MG TABLET (UD) PO SCH ×2 (09:39→21:24)
[2018-02-24] MEDS: PRENATAL VITAMINS W/ FOLIC ACID TABLET (FP) PO SCH (09:39)
[2018-02-24] MEDS: ARIPiprazole 5 MG TABLET (FP) PO SCH (09:39)
[2018-02-24] MEDS: NAPROXEN 500 MG TABLET (FP) PO SCH ×2 (09:39→21:24)
[2018-02-24] MEDS: DIVALPROEX SODIUM 500 MG TABLET E.C. PO SCH ×2 (09:39→21:24)
[2018-02-24] MEDS: PSYLLIUM 5.85 GM PACKET PO SCH ×2 (09:40→21:24)
[2018-02-24] MEDS ORDERED: PT OWN MED DRAWER 7, Y5N ONE ×2 (09:41→20:21)
[2018-02-24] MEDS: levETIRAcetam XR 750 MG TAB PO SCH ×2 (09:41→21:24)
[2018-02-24] MEDS: traZODone HCL 50 MG TABLET (FP) PO SCH (21:24)
[2018-02-24] MEDS: THIAMINE HCL 100 MG TABLET (FP) PO SCH (21:24)
[2018-02-25] MEDS ORDERED: METHADONE HCL 10 MG TABLET ONE (03:13)
[2018-02-25] MEDS ORDERED: METHADONE HCL 40 MG DISPERSABLE TABLET ONE (03:13)
[2018-02-25] MEDS: METHADONE 80 MG, METHADONE 30 MG PO SCH (06:12)
[2018-02-25] MEDS: DOCUSATE SODIUM 100 MG CAPSULE (FP) PO SCH ×2 (10:34→22:17)
[2018-02-25] MEDS: NAPROXEN 500 MG TABLET (FP) PO SCH ×2 (10:34→22:17)
[2018-02-25] MEDS: GABAPENTIN 100 MG CAPSULE (FP) PO SCH ×2 (10:34→22:16)
[2018-02-25] MEDS: predniSONE 20 MG TABLET (UD) PO SCH ×2 (10:34→22:16)
[2018-02-25] MEDS: PSYLLIUM 5.85 GM PACKET PO SCH ×2 (10:34→22:18)
[2018-02-25] MEDS: levETIRAcetam XR 750 MG TAB PO SCH ×2 (10:34→22:18)
[2018-02-25] MEDS: PRENATAL VITAMINS W/ FOLIC ACID TABLET (FP) PO SCH (10:34)
[2018-02-25] MEDS: ARIPiprazole 5 MG TABLET (FP) PO SCH (10:34)
[2018-02-25] MEDS: DIVALPROEX SODIUM 500 MG TABLET E.C. PO SCH ×2 (10:34→22:17)
[2018-02-25] MEDS: THIAMINE HCL 100 MG TABLET (FP) PO SCH (22:16)
[2018-02-25] MEDS: traZODone HCL 50 MG TABLET (FP) PO SCH (22:17)
[2018-02-26] MEDS ORDERED: METHADONE HCL 40 MG DISPERSABLE TABLET ONE (02:42)
[2018-02-26] MEDS ORDERED: METHADONE HCL 10 MG TABLET ONE (02:42)
[2018-02-26] MEDS: METHADONE 80 MG, METHADONE 30 MG PO SCH (06:21)
[2018-02-26] MEDS: DOCUSATE SODIUM 100 MG CAPSULE (FP) PO SCH ×2 (10:19→21:14)
[2018-02-26] MEDS: ARIPiprazole 5 MG TABLET (FP) PO SCH (10:19)
[2018-02-26] MEDS: predniSONE 20 MG TABLET (UD) PO SCH ×2 (10:19→21:14)
[2018-02-26] MEDS: NAPROXEN 500 MG TABLET (FP) PO SCH ×2 (10:19→21:14)
[2018-02-26] MEDS: levETIRAcetam XR 750 MG TAB PO SCH ×2 (10:19→21:16)
[2018-02-26] MEDS: PRENATAL VITAMINS W/ FOLIC ACID TABLET (FP) PO SCH (10:19)
[2018-02-26] MEDS: PSYLLIUM 5.85 GM PACKET PO SCH ×2 (10:19→21:15)
[2018-02-26] MEDS: DIVALPROEX SODIUM 500 MG TABLET E.C. PO SCH ×2 (10:19→21:14)
[2018-02-26] MEDS: GABAPENTIN 100 MG CAPSULE (FP) PO SCH ×2 (10:19→21:14)
[2018-02-26] MEDS: traZODone HCL 50 MG TABLET (FP) PO SCH (21:14)
[2018-02-26] MEDS: THIAMINE HCL 100 MG TABLET (FP) PO SCH (21:14)
[2018-02-27] MEDS: ACETAMINOPHEN 325 MG TABLET (FP) PO PRN ×2 (00:58→10:55)
[2018-02-27] MEDS ORDERED: METHADONE HCL 40 MG DISPERSABLE TABLET ONE (02:36)
[2018-02-27] MEDS ORDERED: METHADONE HCL 10 MG TABLET ONE (02:36)
[2018-02-27] MEDS: METHADONE 80 MG, METHADONE 30 MG PO SCH (06:08)
[2018-02-27] MEDS ORDERED: PT OWN MED DRAWER 7, Y5N ONE (08:26)
[2018-02-27] MEDS: predniSONE 20 MG TABLET (UD) PO SCH (09:57)
[2018-02-27] MEDS: ARIPiprazole 5 MG TABLET (FP) PO SCH (09:57)
[2018-02-27] MEDS: levETIRAcetam XR 750 MG TAB PO SCH ×2 (09:57→21:34)
[2018-02-27] MEDS: DOCUSATE SODIUM 100 MG CAPSULE (FP) PO SCH ×2 (09:57→21:34)
[2018-02-27] MEDS: GABAPENTIN 100 MG CAPSULE (FP) PO SCH ×2 (09:57→21:34)
[2018-02-27] MEDS: DIVALPROEX SODIUM 500 MG TABLET E.C. PO SCH ×2 (09:57→21:34)
[2018-02-27] MEDS: NAPROXEN 500 MG TABLET (FP) PO SCH ×2 (09:58→21:34)
[2018-02-27] MEDS: PSYLLIUM 5.85 GM PACKET PO SCH (09:58)
[2018-02-27] MEDS: PRENATAL VITAMINS W/ FOLIC ACID TABLET (FP) PO SCH (09:58)
--- NOTE | 2018-02-27 14:06 | PN ---
S Progress Note Note: PT C/O PAIN ON FEET. STATES HE PEELED OFF SOME DRY SKIN OFF BOTH HEELS AND OTHER FEET AREAS BECAUSE FEET WERE VERY DRY. ALSO REPORTS REGULAR TO MORE FREQUENT BM. Vital Signs - 24 hr 02/27/18 02/27/18 02/27/18 00:29 03:16 06:00 Temperature 97.9 F Pulse Rate 86 Respiratory 18 18 18 Rate Blood Pressure 133/79 FEET;LEFT HEEL WITH OPEN SKIN/ DRY SKIN AREAS. PLAN: SOAK FEET IN WARM WATER AND BETADINE SOLUTION DAILY APPLY BACITRACIN OINTMENT AND COVER WITH GUAZE DRESSING. REDUCE METAMUCIL FREQUENCY TO ONCE DAILY.
[2018-02-27] MEDS: BACITRACIN 0.9 GM PACKET TP SCH (15:41)
[2018-02-27] MEDS: traZODone HCL 50 MG TABLET (FP) PO SCH (21:34)
[2018-02-27] MEDS: THIAMINE HCL 100 MG TABLET (FP) PO SCH (21:35)
[2018-02-27] MEDS: MELATONIN 5 MG TABLETS PO PRN (21:36)
[2018-02-28] MEDS ORDERED: METHADONE HCL 10 MG TABLET ONE (05:57)
[2018-02-28] MEDS ORDERED: METHADONE HCL 40 MG DISPERSABLE TABLET ONE (05:57)
[2018-02-28] MEDS: METHADONE 80 MG, METHADONE 30 MG PO SCH (06:36)
[2018-02-28] MEDS ORDERED: PSYLLIUM 5.85 GM PACKET PO SCH (10:00)
[2018-02-28] MEDS: ARIPiprazole 5 MG TABLET (FP) PO SCH (10:08)
[2018-02-28] MEDS: DOCUSATE SODIUM 100 MG CAPSULE (FP) PO SCH ×2 (10:08→21:45)
[2018-02-28] MEDS: NAPROXEN 500 MG TABLET (FP) PO SCH ×2 (10:08→21:45)
[2018-02-28] MEDS: BACITRACIN 0.9 GM PACKET TP SCH (10:08)
[2018-02-28] MEDS: DIVALPROEX SODIUM 500 MG TABLET E.C. PO SCH ×2 (10:08→21:44)
[2018-02-28] MEDS: GABAPENTIN 100 MG CAPSULE (FP) PO SCH ×2 (10:08→21:44)
[2018-02-28] MEDS: PRENATAL VITAMINS W/ FOLIC ACID TABLET (FP) PO SCH (10:08)
[2018-02-28] MEDS: levETIRAcetam XR 750 MG TAB PO SCH ×2 (10:09→21:45)
[2018-02-28] MEDS: NICOTINE 14 MG/24 HOURS TOPICAL PATCH TD PRN (10:48)
[2018-02-28] MEDS ORDERED: COLLOIDAL OATMEAL 1 BAR EACH TP PRN (15:03)
--- NOTE | 2018-02-28 20:51 | PN ---
[facility] Progress Note Note: Patient complained of mid chest pain rated at 5/10. He denies past medical history, radiation to extremities, dizziness and SOB. He reports that he has had similar pain before after eating earlier and lying down as he did now. Vital Signs Temperature 98.6 F 02/28/18 21:00 Pulse Rate 100 H 02/28/18 21:00 Respiratory Rate 18 02/28/18 21:00 Blood Pressure 148/76 02/28/18 21:00 O2 Sat by Pulse Oximetry (%) 97% room airAction: aspiri Action: Aspirin 81mg 1 tablet oral order Stat EKG ordered Mylanta 30ml oral Q6H as needed Monitor patient
[2018-02-28] MEDS: traZODone HCL 50 MG TABLET (FP) PO SCH (21:44)
[2018-02-28] MEDS: MELATONIN 5 MG TABLETS PO PRN (21:44)
[2018-02-28] MEDS: THIAMINE HCL 100 MG TABLET (FP) PO SCH (21:44)
[2018-02-28] MEDS: ASPIRIN 81 MG CHEWABLE TABLETS PO SCH (21:44)
[2018-03-01] MEDS ORDERED: METHADONE HCL 10 MG TABLET ONE (02:57)
[2018-03-01] MEDS ORDERED: METHADONE HCL 40 MG DISPERSABLE TABLET ONE (02:57)
[2018-03-01] MEDS: METHADONE 80 MG, METHADONE 30 MG PO SCH (06:12)
[2018-03-01] MEDS: GABAPENTIN 100 MG CAPSULE (FP) PO SCH ×2 (10:09→21:38)
[2018-03-01] MEDS: DOCUSATE SODIUM 100 MG CAPSULE (FP) PO SCH ×2 (10:09→21:38)
[2018-03-01] MEDS: ARIPiprazole 5 MG TABLET (FP) PO SCH (10:09)
[2018-03-01] MEDS: DIVALPROEX SODIUM 500 MG TABLET E.C. PO SCH ×2 (10:09→21:38)
[2018-03-01] MEDS: BACITRACIN 0.9 GM PACKET TP SCH (10:09)
[2018-03-01] MEDS: PRENATAL VITAMINS W/ FOLIC ACID TABLET (FP) PO SCH (10:10)
[2018-03-01] MEDS: NAPROXEN 500 MG TABLET (FP) PO SCH ×2 (10:10→21:38)
[2018-03-01] MEDS: levETIRAcetam XR 750 MG TAB PO SCH ×2 (10:11→21:38)
[2018-03-01] MEDS: ASPIRIN 81 MG CHEWABLE TABLETS PO SCH (10:11)
[2018-03-01] MEDS: MAG HYDROX/AL HYDROX/SIMETH 30 ML UNIT-DOSE CUP PO PRN (11:21)
--- NOTE | 2018-03-01 16:48 | EKG ---
Test Reason : Blood Pressure : / mmHG Vent. Rate : 084 BPM Atrial Rate : 084 BPM P-R Int : 128 ms QRS Dur : 096 ms QT Int : 366 ms P-R-T Axes : 025 024 024 degrees QTc Int : 432 ms NORMAL SINUS RHYTHM NORMAL ECG WHEN COMPARED WITH ECG OF 28-FEB-2018 20:39, LEFT POSTERIOR FASCICULAR BLOCK IS NO LONGER PRESENT NON-SPECIFIC CHANGE IN ST SEGMENT IN LATERAL LEADS T WAVE INVERSION NO LONGER EVIDENT IN LATERAL LEADS Confirmed by SKYLA BRYSON MD ([id number]) on 03/01/2018 4:48:02 PM Referred By: Confirmed By:SKYLA BRYSON MD
--- NOTE | 2018-03-01 16:52 | EKG ---
Test Reason : Blood Pressure : / mmHG Vent. Rate : 095 BPM Atrial Rate : 095 BPM P-R Int : 126 ms QRS Dur : 098 ms QT Int : 346 ms P-R-T Axes : 000 144 147 degrees QTc Int : 434 ms NORMAL SINUS RHYTHM LEFT POSTERIOR FASCICULAR BLOCK NONSPECIFIC ST AND T WAVE ABNORMALITY ABNORMAL ECG NO PREVIOUS ECGS AVAILABLE Confirmed by SKYLA BRYSON MD ([id number]) on 03/01/2018 4:51:39 PM Referred By: Confirmed By:SKYLA BRYSON MD
[2018-03-01] MEDS: MELATONIN 5 MG TABLETS PO PRN (21:38)
[2018-03-01] MEDS: THIAMINE HCL 100 MG TABLET (FP) PO SCH (21:38)
[2018-03-01] MEDS: traZODone HCL 50 MG TABLET (FP) PO SCH (21:38)
[2018-03-02] MEDS ORDERED: METHADONE HCL 10 MG TABLET ONE (02:41)
[2018-03-02] MEDS ORDERED: METHADONE HCL 40 MG DISPERSABLE TABLET ONE (02:42)
[2018-03-02] MEDS: METHADONE 80 MG, METHADONE 30 MG PO SCH (05:40)
[2018-03-02] MEDS: NAPROXEN 500 MG TABLET (FP) PO SCH ×2 (09:43→21:00)
[2018-03-02] MEDS: ARIPiprazole 5 MG TABLET (FP) PO SCH (09:43)
[2018-03-02] MEDS: PRENATAL VITAMINS W/ FOLIC ACID TABLET (FP) PO SCH (09:43)
[2018-03-02] MEDS: DOCUSATE SODIUM 100 MG CAPSULE (FP) PO SCH ×2 (09:43→21:00)
[2018-03-02] MEDS: BACITRACIN 0.9 GM PACKET TP SCH (09:43)
[2018-03-02] MEDS: ASPIRIN 81 MG CHEWABLE TABLETS PO SCH (09:43)
[2018-03-02] MEDS: GABAPENTIN 100 MG CAPSULE (FP) PO SCH ×2 (09:43→20:59)
[2018-03-02] MEDS: DIVALPROEX SODIUM 500 MG TABLET E.C. PO SCH ×2 (09:43→21:00)
[2018-03-02] MEDS: levETIRAcetam XR 750 MG TAB PO SCH ×2 (10:40→21:00)
[2018-03-02] MEDS: THIAMINE HCL 100 MG TABLET (FP) PO SCH (20:59)
[2018-03-02] MEDS: traZODone HCL 50 MG TABLET (FP) PO SCH (21:00)
[2018-03-02] MEDS: MELATONIN 5 MG TABLETS PO PRN (21:00)
[2018-03-03] MEDS ORDERED: METHADONE HCL 40 MG DISPERSABLE TABLET ONE (03:53)
[2018-03-03] MEDS ORDERED: METHADONE HCL 10 MG TABLET ONE (03:53)
[2018-03-03] MEDS: METHADONE 80 MG, METHADONE 30 MG PO SCH (05:43)
[2018-03-03] MEDS: NAPROXEN 500 MG TABLET (FP) PO SCH ×2 (10:02→21:30)
[2018-03-03] MEDS: ARIPiprazole 5 MG TABLET (FP) PO SCH (10:02)
[2018-03-03] MEDS: BACITRACIN 0.9 GM PACKET TP SCH (10:02)
[2018-03-03] MEDS: DOCUSATE SODIUM 100 MG CAPSULE (FP) PO SCH ×2 (10:02→21:31)
[2018-03-03] MEDS: GABAPENTIN 100 MG CAPSULE (FP) PO SCH ×2 (10:02→21:30)
[2018-03-03] MEDS: ASPIRIN 81 MG CHEWABLE TABLETS PO SCH (10:02)
[2018-03-03] MEDS: PRENATAL VITAMINS W/ FOLIC ACID TABLET (FP) PO SCH (10:02)
[2018-03-03] MEDS: DIVALPROEX SODIUM 500 MG TABLET E.C. PO SCH ×2 (10:02→21:31)
[2018-03-03] MEDS: levETIRAcetam XR 750 MG TAB PO SCH ×2 (10:05→21:31)
[2018-03-03] MEDS: NICOTINE 14 MG/24 HOURS TOPICAL PATCH TD PRN (10:05)
[2018-03-03] MEDS: MAG HYDROX/AL HYDROX/SIMETH 30 ML UNIT-DOSE CUP PO PRN (20:28)
[2018-03-03] MEDS: THIAMINE HCL 100 MG TABLET (FP) PO SCH (21:30)
[2018-03-03] MEDS: MELATONIN 5 MG TABLETS PO PRN (21:31)
[2018-03-03] MEDS: traZODone HCL 50 MG TABLET (FP) PO SCH (21:31)
[2018-03-03] MEDS: TOLNAFTATE 1% CREAM 15 GM TUBE TP SCH (21:32)
[2018-03-04] MEDS ORDERED: METHADONE HCL 10 MG TABLET ONE (05:15)
[2018-03-04] MEDS ORDERED: METHADONE HCL 40 MG DISPERSABLE TABLET ONE (05:16)
[2018-03-04] MEDS: METHADONE 80 MG, METHADONE 30 MG PO SCH (05:16)
[2018-03-04] MEDS: NICOTINE 14 MG/24 HOURS TOPICAL PATCH TD PRN (06:20)
[2018-03-04] MEDS: BACITRACIN 0.9 GM PACKET TP SCH (09:53)
[2018-03-04] MEDS: levETIRAcetam XR 750 MG TAB PO SCH ×2 (09:54→21:27)
[2018-03-04] MEDS: DIVALPROEX SODIUM 500 MG TABLET E.C. PO SCH ×2 (09:54→21:26)
[2018-03-04] MEDS: DOCUSATE SODIUM 100 MG CAPSULE (FP) PO SCH ×2 (09:54→21:26)
[2018-03-04] MEDS: ASPIRIN 81 MG CHEWABLE TABLETS PO SCH (09:54)
[2018-03-04] MEDS: ARIPiprazole 5 MG TABLET (FP) PO SCH (09:54)
[2018-03-04] MEDS: GABAPENTIN 100 MG CAPSULE (FP) PO SCH ×2 (09:54→21:26)
[2018-03-04] MEDS: NAPROXEN 500 MG TABLET (FP) PO SCH ×2 (09:54→21:26)
[2018-03-04] MEDS: PRENATAL VITAMINS W/ FOLIC ACID TABLET (FP) PO SCH (09:54)
[2018-03-04] MEDS: TOLNAFTATE 1% CREAM 15 GM TUBE TP SCH ×2 (10:11→21:28)
[2018-03-04] MEDS: MAG HYDROX/AL HYDROX/SIMETH 30 ML UNIT-DOSE CUP PO PRN (11:30)
[2018-03-04] MEDS: THIAMINE HCL 100 MG TABLET (FP) PO SCH (21:26)
[2018-03-04] MEDS: traZODone HCL 50 MG TABLET (FP) PO SCH (21:26)
[2018-03-05] MEDS ORDERED: METHADONE HCL 10 MG TABLET ONE (05:02)
[2018-03-05] MEDS ORDERED: METHADONE HCL 40 MG DISPERSABLE TABLET ONE (05:02)
[2018-03-05] MEDS: METHADONE 80 MG, METHADONE 30 MG PO SCH (06:28)
--- NOTE | 2018-03-05 07:16 | HP ---
Psychiatrist Admission - Data Date of interview: 03/05/18 Admission source: Discharge Note Identifying data: Patient addressing Alcohol, Sedative, Hypnotic or Anxiolytic and Cannabis Dependence comorbid with Opioid Dependence on Agonist Therapy, Nicotine Depence and Schizoaffective Disorder Vital Signs: Vital Signs - 24 hr 03/05/18 03/05/18 03/05/18 00:26 03:30 06:47 Temperature 98.4 F Pulse Rate 83 Respiratory 18 18 19 Rate Blood Pressure 127/76 Allergies/Adverse Reactions: Allergies Allergy/AdvReac Type Severity Reaction Status Date / Time No Known Allergies Allergy Verified 02/12/13 12:52
--- NOTE | 2018-03-05 07:35 | PN ---
Psychiatric Progress Note Vital Signs: Vital Signs Period Temp Pulse Resp BP Sys/Castro Pulse Ox Last 24 Hr 98.4 F 83 18-19 127/76 Date of Session: 03/05/18 Chief Complaint:: Discharge Note HPI: Patient addressing Alcohol, Sedative, Hypnotic or Anxiolytic and Cannabis Dependence comorbid with Opioid Dependence on Agonist Therapy, Nicotine Depence and Schizoaffective Disorder ROS: Seizure Disorder, Gout were medically managed Current Medications: Active Medications Generic Name Dose Route Start Last Admin Trade Name Freq PRN Reason Stop Dose Admin Acetaminophen 650 mg 02/20/18 11:34 02/27/18 10:55 Tylenol - PO 650 mg Q4H PRN Administration FEVER Al Hydroxide/Mg Hydroxide 30 ml 02/20/18 11:34 03/04/18 11:30 Mylanta Oral Suspension - PO 30 ml Q6H PRN Administration DYSPEPSIA Aripiprazole 5 mg 02/21/18 10:00 03/04/18 09:54 Abilify PO 5 mg DAILY BETTY Administration Aspirin 81 mg 02/28/18 21:00 03/04/18 09:54 Asa - PO 81 mg DAILY BETTY Administration Bacitracin 0.9 gm 02/27/18 14:45 03/04/18 09:53 Bacitracin - TP 0.9 gm DAILY BETTY Administration Divalproex Sodium 500 mg 02/20/18 22:00 03/04/18 21:26 Depakote - PO 500 mg BID BETTY Administration Docusate Sodium 100 mg 02/23/18 10:00 03/04/18 21:26 Colace - PO 100 mg BID BETTY Administration Eucalyptus/Menthol/Phenol/Sorbitol 1 each 02/20/18 11:34 Cepastat Lozenge - MM Q4H PRN SORE THROAT Gabapentin 200 mg 02/20/18 22:00 03/04/18 21:26 Neurontin - PO 200 mg BID BETTY Administration Guaifenesin 10 ml 02/20/18 11:34 Robitussin Dm - PO Q6H PRN COUGH Levetiracetam 750 mg 02/20/18 22:00 03/04/18 21:27 Keppra Xr - PO 750 mg BID BETTY Administration Loperamide HCl 4 mg 02/20/18 11:34 Imodium - PO Q6H PRN DIARRHEA Magnesium Citrate 300 ml 02/20/18 11:34 Citroma - PO Q48H PRN CONSTIPATION Magnesium Hydroxide 30 ml 02/20/18 11:34 02/22/18 06:50 Milk Of Magnesia - PO 30 ml DAILY PRN Administration CONSTIPATION Melatonin 5 mg 02/20/18 22:00 03/03/18 21:31 Melatonin PO 5 mg HS PRN Administration INSOMNIA Methadone HCl 80 mg/ Methadone 110 mg 02/28/18 06:00 03/05/18 06:28 HCl 30 mg PO 03/07/18 05:59 110 mg DAILY@0600 BETTY Administration Naproxen 500 mg 02/20/18 22:00 03/04/18 21:26 Naprosyn - PO 500 mg BID BETTY Administration Nicotine 14 mg 02/20/18 11:34 03/04/18 06:20 Nicoderm Patch - TD 14 mg DAILY PRN Administration WITHDRAWAL(CONT SUBST) Nicotine Polacrilex 2 mg 02/20/18 11:34 Nicorette Gum - BUC Q2H PRN NICOTINE REPLACEMENT RX Multivit/Folic Acid/Iron 1 tab 02/21/18 10:00 03/04/18 09:54 Vitamins (Sjr) - PO 1 tab DAILY BETTY Administration Pseudoephedrine/Triprolidine 1 combo 02/20/18 11:34 Actifed - PO TID PRN NASAL CONGESTION Thiamine HCl 100 mg 02/20/18 22:00 03/04/18 21:26 Vitamin B1 - PO 100 mg HS BETTY Administration Tolnaftate 1 applic 03/03/18 22:00 03/04/18 21:28 Tinactin 1% Cream - TP 1 applic BID BETTY Administration Trazodone HCl 50 mg 02/20/18 22:00 03/04/18 21:26 Desyrel - PO 50 mg HS BETTY Administration Current Side Effect: No Lab tests ordered: Yes Lab tests reviewed: Yes Provider note:: Patient will complete this program on 03/06/18. He has met his treatment goals and will continue to address his issues in outpatient treatment at [facility] at [address] [place] [address]. Told aligner typewriter that from his participation in this program, he has learned the tools he needs to make changes in his lifestyle. He responded well to Abilify 5 mg po daily, Depakote 500 mg po BID and Trazadone 50 mg po HS. Scripts for 30 days supply of medications will be electronically transmitted to [facility] at [address], [place] [address]. He is stable for discharge on 03/06/18. Total face to face time:: 35 Mental Status Exam - Mental Status Exam Alert and Oriented to: Time, Place, Person Cognitive Function: Fair Patient Appearance: Well Groomed Mood: Hopeful, Euthymic Affect: Appropriate Patient Behavior: Cooperative Speech Pattern: Clear Voice Loudness: Normal Thought Process: Intact, Goal Oriented Thought Disorder: Not Present Hallucinations: Denies Suicidal Ideation: Denies Homicidal Ideation: Denies Insight/Judgement: Fair Sleep: Fair Appetite: Fair Muscle strength/Tone: Normal Gait/Station: Normal Psychiatric Treatment Plan - Problem List (1) Alcohol dependence Current Visit: Yes (2) Sedative hypnotic or anxiolytic dependence Current Visit: Yes (3) Cannabis dependence Current Visit: Yes (4) Opioid dependence on agonist therapy Current Visit: Yes (5) Opioid dependence on agonist therapy Current Visit: Yes (6) Nicotine dependence Current Visit: No Qualifiers: Nicotine product type: cigarettes Substance use status: in withdrawal Qualified Code(s): F17.213 - Nicotine dependence, cigarettes, with withdrawal (7) Schizoaffective disorder Current Visit: Yes (8) Gout of right foot Current Visit: No Qualifiers: Gout etiology: idiopathic Chronicity: unspecified Qualified Code(s): M10.071 - Idiopathic gout, right ankle and foot (9) Seizure disorder Current Visit: Yes Initial treatment plan: Patient will be discharged tomorow and referred to [facility] for outpatient treatment
[2018-03-05] MEDS: PRENATAL VITAMINS W/ FOLIC ACID TABLET (FP) PO SCH (09:33)
[2018-03-05] MEDS: GABAPENTIN 100 MG CAPSULE (FP) PO SCH ×2 (09:33→21:27)
[2018-03-05] MEDS: DIVALPROEX SODIUM 500 MG TABLET E.C. PO SCH ×2 (09:33→21:27)
[2018-03-05] MEDS: levETIRAcetam XR 750 MG TAB PO SCH ×2 (09:33→21:27)
[2018-03-05] MEDS: NAPROXEN 500 MG TABLET (FP) PO SCH ×2 (09:33→21:27)
[2018-03-05] MEDS: ASPIRIN 81 MG CHEWABLE TABLETS PO SCH (09:33)
[2018-03-05] MEDS: BACITRACIN 0.9 GM PACKET TP SCH (09:33)
[2018-03-05] MEDS: DOCUSATE SODIUM 100 MG CAPSULE (FP) PO SCH ×2 (09:33→21:27)
[2018-03-05] MEDS: TOLNAFTATE 1% CREAM 15 GM TUBE TP SCH ×2 (09:34→21:27)
[2018-03-05] MEDS: ARIPiprazole 5 MG TABLET (FP) PO SCH (09:34)
[2018-03-05] MEDS: NICOTINE 14 MG/24 HOURS TOPICAL PATCH TD PRN (12:49)
[2018-03-05] MEDS ORDERED: PT OWN MED DRAWER 7, Y5N ONE (19:48)
[2018-03-05] MEDS: traZODone HCL 50 MG TABLET (FP) PO SCH (21:27)
[2018-03-05] MEDS: THIAMINE HCL 100 MG TABLET (FP) PO SCH (21:27)
[2018-03-06] MEDS ORDERED: METHADONE HCL 10 MG TABLET ONE (02:50)
[2018-03-06] MEDS ORDERED: METHADONE HCL 40 MG DISPERSABLE TABLET ONE (02:50)
[2018-03-06] MEDS: METHADONE 80 MG, METHADONE 30 MG PO SCH (06:16)
[2018-03-06 06:17] VITALS: BP 102/74; PULSE 87; TEMP 98.1
== END 2018-03-06 08:50 | disposition home or self-care (01) | DRG 772 ==
LOC: YASAS 14:58 → Y5N 15:00 → Y3W 02-22 10:47
PROVIDERS: ADMIT Psychiatry & Neurology Psychiatry; ATTEND Psychiatry & Neurology Psychiatry
PROC: HZ42ZZZ Group Counseling for Substance Abuse Treatment, Cognitive-Behavioral (ICD-10-PCS; principal; 2018-02-20)
DX: F10.20 Alcohol dependence, uncomplicated (principal); F13.20 Sedative, hypnotic or anxiolytic dependence, uncomplicated; F14.20 Cocaine dependence, uncomplicated; F12.20 Cannabis dependence, uncomplicated; F11.20 Opioid dependence, uncomplicated; F17.210 Nicotine dependence, cigarettes, uncomplicated; F25.9 Schizoaffective disorder, unspecified; G40.909 Epilepsy, unspecified, not intractable, without status epilepticus; M10.071 Idiopathic gout, right ankle and foot; L85.3 Xerosis cutis; Z91.5 Personal history of self-harm
CPT/HCPCS: 36415; 80156; 80164; 87389; 93005; 93010

== ENCOUNTER 2018-10-10 08:14 | Inpatient (IN) | payer OTHER | END 2018-10-14 09:45 | disposition other institution (70) | LOC: Y6N 10-12 17:05 → YASAS 08:14 → Y6N 11:17 ==

== ENCOUNTER 2020-05-20 12:18 | Inpatient (IN) | payer OTHER ==
[2020-05-20 16:17] VITALS: BMI 28.8
[2020-05-20] MEDS ORDERED: NICOTINE POLACRILEX 2 MG GUM BC PRN (19:33)
[2020-05-20] MEDS ORDERED: ACETAMINOPHEN 325 MG TABLET (FP) PO PRN (19:33)
[2020-05-20] MEDS ORDERED: guaiFENesin 200 MG/10 ML 10 ML UNIT-DOSE CUPS PO PRN (19:33)
[2020-05-20] MEDS ORDERED: P-EPHED 60MG/TRIPROLIDI 2.5MG TABLET PO PRN (19:33)
[2020-05-20] MEDS ORDERED: MAGNESIUM HYDROX 2400MG/30ML ORAL SUSPENSION 30 ML CUP PO PRN (19:33)
[2020-05-20] MEDS ORDERED: MAGNESIUM CITRATE 300 ML BOTTLE PO PRN (19:33)
[2020-05-20] MEDS ORDERED: MAG HYDROX/AL HYDROX/SIMETH 30 ML UNIT-DOSE CUP PO PRN (19:33)
[2020-05-20] MEDS ORDERED: LOPERAMIDE HCL 2 MG CAPSULE PO PRN (19:33)
[2020-05-20] MEDS ORDERED: IBUPROFEN 400 MG TABLET (FP) PO PRN (19:33)
[2020-05-20] MEDS: MELATONIN 5 MG TABLETS PO SCH (22:17)
[2020-05-20] MEDS: hydrOXYzine PAMOATE 25 MG CAPSULE (FP) PO SCH (22:18)
[2020-05-20] MEDS: THIAMINE HCL 100 MG TABLET (FP) PO SCH (22:18)
[2020-05-20] MEDS ORDERED: TUBERCULIN PPD 5 TU/0.1ML VIAL ID ONE (22:21)
[2020-05-20] MEDS: levETIRAcetam 250 MG TABLET PO SCH (22:44)
[2020-05-21] MEDS: hydrOXYzine PAMOATE 25 MG CAPSULE (FP) PO SCH ×5 (07:08→21:31)
[2020-05-21] MEDS ORDERED: NICOTINE 7 MG/24 HOURS TOPICAL PATCH TD SCH (10:00)
[2020-05-21] MEDS: NICOTINE 14 MG/24 HOURS TOPICAL PATCH TD SCH (11:06)
[2020-05-21] MEDS: levETIRAcetam 250 MG TABLET PO SCH ×2 (11:06→21:31)
[2020-05-21] MEDS: PRENATAL VITAMINS W/ FOLIC ACID TABLET (FP) PO SCH (11:06)
[2020-05-21] MEDS: ALLOPURINOL 100 MG TABLET (FP) PO SCH (11:07)
[2020-05-21 11:39] LABS: CALCIUM 9.3 mg/dL (8.5-10.1)
[2020-05-21 11:40] LABS: BLOOD UREA NITROGEN 16.7 mg/dL (7-18)
[2020-05-21 11:42] LABS: CREATININE 0.9 mg/dL (0.55-1.3)
[2020-05-21 11:44] LABS: BILIRUBIN,TOTAL 0.2 mg/dL (0.2-1); TOT PROT 5.8 g/dl (6.4-8.2)
[2020-05-21 11:46] LABS: POTASSIUM 4.2 mmol/L (3.5-5.1)
[2020-05-21 11:47] LABS: HEMATOCRIT 35.9 % (35.4-49); HEMOGLOBIN 11.8 GM/dL (11.7-16.9); MCH 31.8 pg (25.7-33.7); MCHC 32.9 g/dl (32.0-35.9); MEAN CELL VOLUME 96.6 fl (80-96); MEAN PLT VOLUME 8.3 fl (7.5-11.1); PLATELET COUNT 222 K/MM3 (134-434); RBC 3.71 M/mm3 (4.00-5.60); RDW 14.4 % (11.9-15.9); WHITE BLOOD COUNT 6.2 K/mm3 (4.0-10.0)
[2020-05-21] MEDS: ARIPiprazole 5 MG TABLET PO SCH (13:11)
[2020-05-21] MEDS ORDERED: METHADONE HCL 10 MG TABLET PO ONE (16:00)
[2020-05-21] MEDS ORDERED: PT OWN MED DRAWER 7, Y5N ONE (20:12)
[2020-05-21] MEDS: THIAMINE HCL 100 MG TABLET (FP) PO SCH (21:31)
[2020-05-21] MEDS: MELATONIN 5 MG TABLETS PO SCH (21:32)
[2020-05-22] MEDS: hydrOXYzine PAMOATE 25 MG CAPSULE (FP) PO SCH ×5 (06:42→21:44)
[2020-05-22] MEDS ORDERED: PT OWN MED DRAWER 7, Y5N ONE ×2 (09:13→20:12)
[2020-05-22] MEDS ORDERED: METHADONE HCL 40 MG DISPERSABLE TABLET PO ONE (09:37)
[2020-05-22] MEDS: levETIRAcetam 250 MG TABLET PO SCH ×2 (10:02→21:43)
[2020-05-22] MEDS: ALLOPURINOL 100 MG TABLET (FP) PO SCH (10:03)
[2020-05-22] MEDS: PRENATAL VITAMINS W/ FOLIC ACID TABLET (FP) PO SCH (10:03)
[2020-05-22] MEDS: NICOTINE 14 MG/24 HOURS TOPICAL PATCH TD SCH (10:06)
[2020-05-22] MEDS: ARIPiprazole 5 MG TABLET PO SCH (11:56)
[2020-05-22] MEDS: BACITRACIN 0.9 GM PACKET TP SCH ×2 (13:18→21:43)
[2020-05-22] MEDS: TOLNAFTATE 1% CREAM 15 GM TUBE TP SCH ×2 (14:50→21:45)
[2020-05-22] MEDS: MELATONIN 5 MG TABLETS PO SCH (21:44)
[2020-05-22] MEDS: THIAMINE HCL 100 MG TABLET (FP) PO SCH (21:44)
[2020-05-23] MEDS: METHADONE HCL 40 MG DISPERSABLE TABLET PO SCH (06:51)
[2020-05-23] MEDS: hydrOXYzine PAMOATE 25 MG CAPSULE (FP) PO SCH ×5 (06:51→21:44)
[2020-05-23] MEDS: PRENATAL VITAMINS W/ FOLIC ACID TABLET (FP) PO SCH (10:00)
[2020-05-23] MEDS: BACITRACIN 0.9 GM PACKET TP SCH ×2 (10:00→21:44)
[2020-05-23] MEDS: levETIRAcetam 250 MG TABLET PO SCH ×2 (10:00→21:44)
[2020-05-23] MEDS: TOLNAFTATE 1% CREAM 15 GM TUBE TP SCH ×2 (10:01→21:47)
[2020-05-23] MEDS: ARIPiprazole 5 MG TABLET PO SCH (10:01)
[2020-05-23] MEDS: NICOTINE 14 MG/24 HOURS TOPICAL PATCH TD SCH (10:01)
[2020-05-23] MEDS: ALLOPURINOL 100 MG TABLET (FP) PO SCH (10:01)
[2020-05-23] MEDS ORDERED: PT OWN MED DRAWER 7, Y5N ONE (19:57)
[2020-05-23] MEDS: THIAMINE HCL 100 MG TABLET (FP) PO SCH (21:44)
[2020-05-23] MEDS: MELATONIN 5 MG TABLETS PO SCH (21:45)
[2020-05-24] MEDS: hydrOXYzine PAMOATE 25 MG CAPSULE (FP) PO SCH ×5 (06:38→21:37)
[2020-05-24] MEDS: METHADONE HCL 40 MG DISPERSABLE TABLET PO SCH (06:38)
[2020-05-24] MEDS: PRENATAL VITAMINS W/ FOLIC ACID TABLET (FP) PO SCH (09:26)
[2020-05-24] MEDS: BACITRACIN 0.9 GM PACKET TP SCH ×2 (09:27→21:36)
[2020-05-24] MEDS: levETIRAcetam 250 MG TABLET PO SCH ×2 (09:27→21:37)
[2020-05-24] MEDS: ARIPiprazole 5 MG TABLET PO SCH (09:27)
[2020-05-24] MEDS: NICOTINE 14 MG/24 HOURS TOPICAL PATCH TD SCH (09:29)
[2020-05-24] MEDS: TOLNAFTATE 1% CREAM 15 GM TUBE TP SCH ×2 (09:30→21:36)
[2020-05-24] MEDS: ALLOPURINOL 100 MG TABLET (FP) PO SCH (10:57)
[2020-05-24] MEDS: THIAMINE HCL 100 MG TABLET (FP) PO SCH (21:37)
[2020-05-24] MEDS: MELATONIN 5 MG TABLETS PO SCH (21:37)
[2020-05-25] MEDS: METHADONE HCL 40 MG DISPERSABLE TABLET PO SCH (06:26)
[2020-05-25] MEDS: hydrOXYzine PAMOATE 25 MG CAPSULE (FP) PO SCH ×5 (06:26→21:35)
[2020-05-25] MEDS: PRENATAL VITAMINS W/ FOLIC ACID TABLET (FP) PO SCH (10:09)
[2020-05-25] MEDS: BACITRACIN 0.9 GM PACKET TP SCH ×2 (10:09→21:35)
[2020-05-25] MEDS: ARIPiprazole 5 MG TABLET PO SCH (10:10)
[2020-05-25] MEDS: levETIRAcetam 250 MG TABLET PO SCH ×2 (10:10→21:35)
[2020-05-25] MEDS: TOLNAFTATE 1% CREAM 15 GM TUBE TP SCH ×2 (10:10→21:36)
[2020-05-25] MEDS: ALLOPURINOL 100 MG TABLET (FP) PO SCH (10:10)
[2020-05-25] MEDS: NICOTINE 14 MG/24 HOURS TOPICAL PATCH TD SCH (10:11)
[2020-05-25] MEDS ORDERED: MASKS NR ONE (19:45)
[2020-05-25] MEDS: THIAMINE HCL 100 MG TABLET (FP) PO SCH (21:35)
[2020-05-25] MEDS: MELATONIN 5 MG TABLETS PO SCH (21:35)
[2020-05-26] MEDS: hydrOXYzine PAMOATE 25 MG CAPSULE (FP) PO SCH ×5 (05:56→21:30)
[2020-05-26] MEDS: METHADONE HCL 40 MG DISPERSABLE TABLET PO SCH (05:57)
[2020-05-26] MEDS: ARIPiprazole 5 MG TABLET PO SCH (10:09)
[2020-05-26] MEDS: PRENATAL VITAMINS W/ FOLIC ACID TABLET (FP) PO SCH (10:09)
[2020-05-26] MEDS: levETIRAcetam 250 MG TABLET PO SCH ×2 (10:09→21:30)
[2020-05-26] MEDS: BACITRACIN 0.9 GM PACKET TP SCH ×2 (10:09→21:33)
[2020-05-26] MEDS: ALLOPURINOL 100 MG TABLET (FP) PO SCH (10:10)
[2020-05-26] MEDS: TOLNAFTATE 1% CREAM 15 GM TUBE TP SCH ×2 (10:10→21:37)
[2020-05-26] MEDS: NICOTINE 14 MG/24 HOURS TOPICAL PATCH TD SCH (10:10)
[2020-05-26] MEDS ORDERED: MASKS NR ONE (17:55)
[2020-05-26] MEDS ORDERED: PT OWN MED DRAWER 7, Y5N ONE (20:37)
[2020-05-26] MEDS: MELATONIN 5 MG TABLETS PO SCH (21:30)
[2020-05-26] MEDS: THIAMINE HCL 100 MG TABLET (FP) PO SCH (21:30)
[2020-05-27] MEDS: METHADONE HCL 40 MG DISPERSABLE TABLET PO SCH (06:35)
[2020-05-27] MEDS: hydrOXYzine PAMOATE 25 MG CAPSULE (FP) PO SCH ×3 (06:35→13:17)
[2020-05-27] MEDS ORDERED: PT OWN MED DRAWER 7, Y5N ONE ×2 (08:28→19:12)
[2020-05-27] MEDS ORDERED: MENTHOL/PHENOL 1 EACH UD MM PRN (09:03)
[2020-05-27] MEDS: levETIRAcetam 250 MG TABLET PO SCH ×2 (10:11→21:38)
[2020-05-27] MEDS: PRENATAL VITAMINS W/ FOLIC ACID TABLET (FP) PO SCH (10:11)
[2020-05-27] MEDS: ALLOPURINOL 100 MG TABLET (FP) PO SCH (10:11)
[2020-05-27] MEDS: BACITRACIN 0.9 GM PACKET TP SCH ×2 (10:11→21:38)
[2020-05-27] MEDS: ARIPiprazole 5 MG TABLET PO SCH (10:11)
[2020-05-27] MEDS: NICOTINE 14 MG/24 HOURS TOPICAL PATCH TD SCH (10:12)
[2020-05-27] MEDS: TOLNAFTATE 1% CREAM 15 GM TUBE TP SCH ×2 (10:13→21:40)
[2020-05-27] MEDS: MELATONIN 5 MG TABLETS PO SCH (21:38)
[2020-05-27] MEDS: METHYL SALICYLATE/MENTHOL OINT 30 GM TUBE TP SCH (21:39)
[2020-05-27] MEDS: THIAMINE HCL 100 MG TABLET (FP) PO SCH (21:41)
[2020-05-28] MEDS: METHADONE HCL 40 MG DISPERSABLE TABLET PO SCH (06:23)
[2020-05-28] MEDS: TOLNAFTATE 1% CREAM 15 GM TUBE TP SCH ×2 (10:23→21:30)
[2020-05-28] MEDS: PRENATAL VITAMINS W/ FOLIC ACID TABLET (FP) PO SCH (10:23)
[2020-05-28] MEDS: BACITRACIN 0.9 GM PACKET TP SCH ×2 (10:23→21:30)
[2020-05-28] MEDS: NICOTINE 14 MG/24 HOURS TOPICAL PATCH TD SCH (10:24)
[2020-05-28] MEDS: levETIRAcetam 250 MG TABLET PO SCH ×2 (10:25→21:30)
[2020-05-28] MEDS: ARIPiprazole 5 MG TABLET PO SCH (10:25)
[2020-05-28] MEDS: METHYL SALICYLATE/MENTHOL OINT 30 GM TUBE TP SCH ×2 (10:26→21:31)
[2020-05-28] MEDS: ALLOPURINOL 100 MG TABLET (FP) PO SCH (10:27)
[2020-05-28] MEDS: hydrOXYzine PAMOATE 25 MG CAPSULE (FP) PO PRN (11:56)
[2020-05-28] MEDS ORDERED: PT OWN MED DRAWER 7, Y5N ONE (20:01)
[2020-05-28] MEDS: THIAMINE HCL 100 MG TABLET (FP) PO SCH (21:30)
[2020-05-28] MEDS: MELATONIN 5 MG TABLETS PO SCH (21:31)
[2020-05-29] MEDS: METHADONE HCL 40 MG DISPERSABLE TABLET PO SCH (06:41)
[2020-05-29] MEDS: ARIPiprazole 2 MG TABLET PO SCH (10:20)
[2020-05-29] MEDS: levETIRAcetam 250 MG TABLET PO SCH ×2 (10:20→21:10)
[2020-05-29] MEDS: NICOTINE 14 MG/24 HOURS TOPICAL PATCH TD SCH (10:20)
[2020-05-29] MEDS: PRENATAL VITAMINS W/ FOLIC ACID TABLET (FP) PO SCH (10:20)
[2020-05-29] MEDS: TOLNAFTATE 1% CREAM 15 GM TUBE TP SCH ×2 (10:21→21:12)
[2020-05-29] MEDS: METHYL SALICYLATE/MENTHOL OINT 30 GM TUBE TP SCH ×2 (10:21→21:11)
[2020-05-29] MEDS: ALLOPURINOL 100 MG TABLET (FP) PO SCH (10:21)
[2020-05-29] MEDS: BACITRACIN 0.9 GM PACKET TP SCH ×2 (10:21→21:11)
[2020-05-29] MEDS: hydrOXYzine PAMOATE 25 MG CAPSULE (FP) PO PRN (10:22)
[2020-05-29] MEDS: THIAMINE HCL 100 MG TABLET (FP) PO SCH (21:10)
[2020-05-29] MEDS: MELATONIN 5 MG TABLETS PO SCH (21:11)
[2020-05-30] MEDS: METHADONE HCL 40 MG DISPERSABLE TABLET PO SCH (06:53)
[2020-05-30] MEDS: PRENATAL VITAMINS W/ FOLIC ACID TABLET (FP) PO SCH (10:26)
[2020-05-30] MEDS: BACITRACIN 0.9 GM PACKET TP SCH ×2 (10:26→21:23)
[2020-05-30] MEDS: ARIPiprazole 2 MG TABLET PO SCH (10:27)
[2020-05-30] MEDS: levETIRAcetam 250 MG TABLET PO SCH ×2 (10:27→21:23)
[2020-05-30] MEDS: ALLOPURINOL 100 MG TABLET (FP) PO SCH (10:27)
[2020-05-30] MEDS: NICOTINE 14 MG/24 HOURS TOPICAL PATCH TD SCH (10:27)
[2020-05-30] MEDS: METHYL SALICYLATE/MENTHOL OINT 30 GM TUBE TP SCH ×2 (10:28→21:25)
[2020-05-30] MEDS: TOLNAFTATE 1% CREAM 15 GM TUBE TP SCH ×2 (10:28→21:25)
[2020-05-30] MEDS: MELATONIN 5 MG TABLETS PO SCH (21:23)
[2020-05-30] MEDS: THIAMINE HCL 100 MG TABLET (FP) PO SCH (21:23)
[2020-05-30] MEDS: hydrOXYzine PAMOATE 25 MG CAPSULE (FP) PO PRN (21:23)
[2020-05-31] MEDS: METHADONE HCL 40 MG DISPERSABLE TABLET PO SCH (06:04)
[2020-05-31] MEDS ORDERED: PT OWN MED DRAWER 7, Y5N ONE (08:53)
[2020-05-31] MEDS: levETIRAcetam 250 MG TABLET PO SCH ×2 (09:57→21:23)
[2020-05-31] MEDS: PRENATAL VITAMINS W/ FOLIC ACID TABLET (FP) PO SCH (09:57)
[2020-05-31] MEDS: BACITRACIN 0.9 GM PACKET TP SCH ×2 (09:57→21:22)
[2020-05-31] MEDS: ALLOPURINOL 100 MG TABLET (FP) PO SCH (09:57)
[2020-05-31] MEDS: METHYL SALICYLATE/MENTHOL OINT 30 GM TUBE TP SCH ×2 (09:58→21:23)
[2020-05-31] MEDS: ARIPiprazole 2 MG TABLET PO SCH (09:58)
[2020-05-31] MEDS: TOLNAFTATE 1% CREAM 15 GM TUBE TP SCH ×2 (09:58→21:22)
[2020-05-31] MEDS: NICOTINE 14 MG/24 HOURS TOPICAL PATCH TD SCH (10:01)
[2020-05-31] MEDS: hydrOXYzine PAMOATE 25 MG CAPSULE (FP) PO PRN (18:13)
[2020-05-31] MEDS: MELATONIN 5 MG TABLETS PO SCH (21:22)
[2020-05-31] MEDS: THIAMINE HCL 100 MG TABLET (FP) PO SCH (21:22)
[2020-06-01] MEDS: METHADONE HCL 40 MG DISPERSABLE TABLET PO SCH (06:05)
[2020-06-01 08:18] VITALS: BP 117/70; PULSE 76; TEMP 97.7
[2020-06-01] MEDS ORDERED: PT OWN MED DRAWER 7, Y5N ONE (08:59)
[2020-06-01] MEDS: BACITRACIN 0.9 GM PACKET TP SCH (09:58)
[2020-06-01] MEDS: PRENATAL VITAMINS W/ FOLIC ACID TABLET (FP) PO SCH (09:58)
[2020-06-01] MEDS: levETIRAcetam 250 MG TABLET PO SCH (09:58)
[2020-06-01] MEDS: NICOTINE 14 MG/24 HOURS TOPICAL PATCH TD SCH (09:59)
[2020-06-01] MEDS: ALLOPURINOL 100 MG TABLET (FP) PO SCH (09:59)
[2020-06-01] MEDS: ARIPiprazole 2 MG TABLET PO SCH (09:59)
[2020-06-01] MEDS: METHYL SALICYLATE/MENTHOL OINT 30 GM TUBE TP SCH (09:59)
[2020-06-01] MEDS: TOLNAFTATE 1% CREAM 15 GM TUBE TP SCH (09:59)
== END 2020-06-01 03:15 | disposition home or self-care (01) | DRG 772 ==
LOC: YASAS 12:18 → Y5N 19:13
PROVIDERS: ADMIT Allergy & Immunology; ATTEND Allergy & Immunology
PROC: HZ42ZZZ Group Counseling for Substance Abuse Treatment, Cognitive-Behavioral (ICD-10-PCS; principal; 2020-05-20)
DX: F10.20 Alcohol dependence, uncomplicated (principal); F11.20 Opioid dependence, uncomplicated; F14.20 Cocaine dependence, uncomplicated; F12.20 Cannabis dependence, uncomplicated; F17.210 Nicotine dependence, cigarettes, uncomplicated; F20.0 Paranoid schizophrenia; I10 Essential (primary) hypertension; K21.9 Gastro-esophageal reflux disease without esophagitis; G40.909 Epilepsy, unspecified, not intractable, without status epilepticus; M10.9 Gout, unspecified; Z62.810 Personal history of physical and sexual abuse in childhood; Z87.81 Personal history of (healed) traumatic fracture; Z87.01 Personal history of pneumonia (recurrent); Z86.711 Personal history of pulmonary embolism; Z56.0 Unemployment, unspecified; Z59.0 Homelessness
CPT/HCPCS: 36415; 71046-TC-FY; 80053; 85027; 86780; 87070; C9803; U0003

== ENCOUNTER 2022-12-27 20:35 | Inpatient (IN) | payer OTHER ==
[2022-12-27 22:21] VITALS: BMI 33.9
[2022-12-27] MEDS: levETIRAcetam 250 MG TABLET PO SCH (23:20)
[2022-12-27] MEDS ORDERED: ACETAMINOPHEN 325 MG TABLET (FP) PO PRN (23:44)
[2022-12-27] MEDS ORDERED: NICOTINE POLACRILEX 2 MG GUM BUC PRN (23:44)
[2022-12-27] MEDS ORDERED: BENZONATATE 200 MG CAPSULE PO PRN (23:44)
[2022-12-27] MEDS ORDERED: MAG HYDROX/AL HYDROX/SIMETH 30 ML UNIT-DOSE CUP PO PRN (23:44)
[2022-12-27] MEDS ORDERED: BENZOCAINE/MENTHOL (CHLORASEPTIC ) LOZENGE MM PRN (23:44)
[2022-12-27] MEDS ORDERED: P-EPHED 60MG/TRIPROLIDI 2.5MG TABLET PO PRN (23:44)
[2022-12-27] MEDS ORDERED: guaiFENesin 600 MG TABLET.ER (FP) PO PRN (23:44)
[2022-12-27] MEDS ORDERED: NALOXONE HCL 0.4 MG/ML VIAL IM PRN (23:44)
[2022-12-27] MEDS ORDERED: MAGNESIUM HYDROX 2400MG/30ML ORAL SUSPENSION 30 ML CUP PO PRN (23:44)
[2022-12-27] MEDS ORDERED: hydrOXYzine PAMOATE 25 MG CAPSULE (FP) PO PRN (23:44)
[2022-12-27] MEDS ORDERED: LOPERAMIDE HCL 2 MG CAPSULE PO PRN (23:44)
[2022-12-27] MEDS ORDERED: POLYETHYLENE GLYCOL (HEALTHYLAX) 3350 17 GM PACKET PO PRN (23:44)
[2022-12-27] MEDS ORDERED: IBUPROFEN 600 MG TABLET (FP) PO PRN (23:44)
[2022-12-27] MEDS ORDERED: NALOXONE HCL (KLOXXADO) 8 MG SPRAY NS PRN (23:44)
[2022-12-27] MEDS ORDERED: COLLOIDAL OATMEAL 1 BAR EACH TP PRN (23:44)
[2022-12-27] MEDS ORDERED: IBUPROFEN 400 MG TABLET (FP) PO PRN (23:44)
[2022-12-28] MEDS: MELATONIN 5 MG TABLETS PO SCH ×2 (07:39→21:30)
[2022-12-28] MEDS: PRENATAL VITAMINS W/ FOLIC ACID TABLET (FP) PO SCH (09:52)
[2022-12-28] MEDS: levETIRAcetam 250 MG TABLET PO SCH ×2 (09:53→21:30)
[2022-12-28] MEDS ORDERED: methaDONE HCL 10 MG TABLET (FOR DETOX USE ONLY) PO ONE (11:36)
[2022-12-28 11:48] LABS: CHLORIDE 110 mmol/L (98-107); POTASSIUM 4.4 mmol/L (3.5-5.1); SODIUM 143 mmol/L (136-145)
[2022-12-28 11:55] LABS: CALCIUM 9.2 mg/dL (8.5-10.1)
[2022-12-28 11:55] LABS: HEMATOCRIT 36.2 % (35.4-49); MCHC 33.3 g/dl (32.0-35.9); MEAN CELL VOLUME 93.1 fl (80-96); MEAN PLT VOLUME 8.4 fl (7.5-11.1); PLATELET COUNT 240 10^3/uL (134-434); RBC 3.88 M/mm3 (4.00-5.60); RDW 15.1 % (11.9-15.9); WHITE BLOOD COUNT 6.8 K/mm3 (4.0-10.0)
[2022-12-28 11:56] LABS: ALBUMIN 3.1 g/dl (3.4-5.0); ANION GAP 7 mmol/L (4-13); BLOOD UREA NITROGEN 20.9 mg/dL (7-18); CO2 26 mmol/L (21-32); GLUCOSE,RANDOM 121 mg/dL (74-106)
[2022-12-28 11:59] LABS: CREATININE 1.2 mg/dL (0.55-1.3); SGOT/AST 18 U/L (15-37); SGPT/ALT 18 U/L (13-61)
[2022-12-28] MEDS ORDERED: TUBERCULIN PPD 5 TU/0.1ML SYRINGE (IN PATIENT USE ONLY) ID ONE (12:00)
[2022-12-28 12:01] LABS: BILIRUBIN,TOTAL 0.4 mg/dL (0.2-1); TOT PROT 6.2 g/dl (6.4-8.2)
[2022-12-28 12:02] LABS: ALK PHOS 93 U/L (45-117)
[2022-12-28 12:30] LABS: SYPHILIS W/ RPR CONF NON-REACTIVE (NONREACTIVE)
[2022-12-28 15:17] LABS: URINE APPEARANCE CLEAR; URINE BILIRUBIN NEGATIVE (NEGATIVE); URINE COLOR YELLOW; URINE GLUCOSE (UA) NEGATIVE (NEGATIVE); URINE KETONE NEGATIVE (NEGATIVE); URINE LEUK ESTERASE NEGATIVE (NEGATIVE); URINE NITRITE NEGATIVE (NEGATIVE); URINE PROTEIN NEGATIVE (NEGATIVE); URINE UROBILINOGEN 0.2 mg/dL (0.2-1.0)
[2022-12-28] MEDS: OLANZapine 10 MG TABLET PO SCH (21:29)
[2022-12-28] MEDS: traZODone HCL 50 MG TABLET (FP) PO SCH (21:29)
[2022-12-28] MEDS: THIAMINE HCL 100 MG TABLET (FP) PO SCH (21:30)
[2022-12-29] MEDS: levETIRAcetam 250 MG TABLET PO SCH ×2 (10:36→21:15)
[2022-12-29] MEDS: PRENATAL VITAMINS W/ FOLIC ACID TABLET (FP) PO SCH (10:36)
[2022-12-29] MEDS: MELATONIN 5 MG TABLETS PO SCH (21:15)
[2022-12-29] MEDS: OLANZapine 10 MG TABLET PO SCH (21:15)
[2022-12-29] MEDS: THIAMINE HCL 100 MG TABLET (FP) PO SCH (21:15)
[2022-12-29] MEDS: traZODone HCL 50 MG TABLET (FP) PO SCH (21:15)
[2022-12-30] MEDS: PRENATAL VITAMINS W/ FOLIC ACID TABLET (FP) PO SCH (10:28)
[2022-12-30] MEDS: levETIRAcetam 250 MG TABLET PO SCH ×2 (10:28→21:09)
[2022-12-30] MEDS ORDERED: NICOTINE POLACRILEX 4 MG GUM BUC PRN (11:26)
[2022-12-30] MEDS: NICOTINE 14 MG/24 HOURS TOPICAL PATCH TD SCH (13:24)
[2022-12-30] MEDS: THIAMINE HCL 100 MG TABLET (FP) PO SCH (21:09)
[2022-12-30] MEDS: traZODone HCL 50 MG TABLET (FP) PO SCH (21:09)
[2022-12-30] MEDS: OLANZapine 10 MG TABLET PO SCH (21:09)
[2022-12-30] MEDS: MELATONIN 5 MG TABLETS PO SCH (21:09)
[2022-12-31] MEDS: METHOCARBAMOL 750 MG TABLET PO PRN (03:16)
[2022-12-31] MEDS: levETIRAcetam 250 MG TABLET PO SCH ×2 (10:09→21:05)
[2022-12-31] MEDS: PRENATAL VITAMINS W/ FOLIC ACID TABLET (FP) PO SCH (10:09)
[2022-12-31] MEDS: NICOTINE 14 MG/24 HOURS TOPICAL PATCH TD SCH (10:09)
[2022-12-31] MEDS: MELATONIN 5 MG TABLETS PO SCH (21:04)
[2022-12-31] MEDS: THIAMINE HCL 100 MG TABLET (FP) PO SCH (21:04)
[2022-12-31] MEDS: OLANZapine 10 MG TABLET PO SCH (21:05)
[2022-12-31] MEDS: traZODone HCL 50 MG TABLET (FP) PO SCH (21:05)
[2023-01-01] MEDS: NICOTINE 14 MG/24 HOURS TOPICAL PATCH TD SCH (10:04)
[2023-01-01] MEDS: levETIRAcetam 250 MG TABLET PO SCH ×2 (10:04→21:18)
[2023-01-01] MEDS: PRENATAL VITAMINS W/ FOLIC ACID TABLET (FP) PO SCH (10:04)
[2023-01-01] MEDS: OLANZapine 10 MG TABLET PO SCH (21:18)
[2023-01-01] MEDS: traZODone HCL 50 MG TABLET (FP) PO SCH (21:18)
[2023-01-01] MEDS: THIAMINE HCL 100 MG TABLET (FP) PO SCH (21:19)
[2023-01-01] MEDS: MELATONIN 5 MG TABLETS PO SCH (21:19)
[2023-01-01] MEDS: cloNIDine HCL 0.1 MG TABLET PO SCH (21:20)
[2023-01-02 07:30] VITALS: RESP 17; TEMP 97.3
[2023-01-02] MEDS: METHOCARBAMOL 750 MG TABLET PO PRN (08:54)
[2023-01-02] MEDS: levETIRAcetam 250 MG TABLET PO SCH ×2 (10:26→22:40)
[2023-01-02] MEDS: cloNIDine HCL 0.1 MG TABLET PO SCH ×2 (10:26→22:39)
[2023-01-02] MEDS: NICOTINE 14 MG/24 HOURS TOPICAL PATCH TD SCH (10:27)
[2023-01-02] MEDS: PRENATAL VITAMINS W/ FOLIC ACID TABLET (FP) PO SCH (10:27)
[2023-01-02 12:26] VITALS: BP 130/71; PULSE 75
[2023-01-02] MEDS: traZODone HCL 50 MG TABLET (FP) PO SCH (22:39)
[2023-01-02] MEDS: MELATONIN 5 MG TABLETS PO SCH (22:40)
[2023-01-02] MEDS: THIAMINE HCL 100 MG TABLET (FP) PO SCH (22:40)
[2023-01-02] MEDS: OLANZapine 10 MG TABLET PO SCH (22:40)
== END 2023-01-02 20:00 | DRG 772 ==
LOC: YASAS 20:35 → Y3W 12-28 02:00
PROVIDERS: ADMIT Allergy & Immunology; ATTEND Psychiatry & Neurology Pain Medicine
PROC: HZ42ZZZ Group Counseling for Substance Abuse Treatment, Cognitive-Behavioral (ICD-10-PCS; principal; 2022-12-28)
DX: F10.20 Alcohol dependence, uncomplicated (principal); F11.20 Opioid dependence, uncomplicated; F14.20 Cocaine dependence, uncomplicated; F17.210 Nicotine dependence, cigarettes, uncomplicated; F20.0 Paranoid schizophrenia; F19.280 Other psychoactive substance dependence with psychoactive substance-induced anxiety disorder; R45.851 Suicidal ideations; G40.909 Epilepsy, unspecified, not intractable, without status epilepticus; I10 Essential (primary) hypertension; M19.071 Primary osteoarthritis, right ankle and foot; M19.072 Primary osteoarthritis, left ankle and foot; Z62.810 Personal history of physical and sexual abuse in childhood
CPT/HCPCS: 36415; 80053; 80307; 81003; 85027; 86780; 86803; 87635; 87811